=== PATIENT | male | born 1965 | race Caucasian/White ===

== ENCOUNTER 2017-11-01 10:43 | Observation (INO) | payer OTHER ==
[~2017-11-01] VITALS: Ht 172.7 cm; Wt 63.5 kg
[2017-11-01 10:47] VITALS: BP 105/75
[2017-11-01] MEDS ORDERED: NACL 0.9% 3,000 ML IV ONE (12:15)
[2017-11-01 12:48] LABS: BASOPHILS % (AUTO) 0.2 % (0.0-2.0); EOSINOPHILS % (AUTO) 0.4 % (0.0-4.0); HEMATOCRIT 41.6 % (36-52); HEMOGLOBIN 13.7 g/dL (12.0-18.0); LYMPHOCYTES # (AUTO) 1.5 K/uL (2.0-11.5); LYMPHOCYTES % (AUTO) 16.8 % (20.5-51.1); MEAN CORPUSCULAR HEMOGLOBIN 31 pg (27-31); MEAN CORPUSCULAR HGB CONC 33 g/dL (33-37); MEAN CORPUSCULAR VOLUME 94.2 fL (80-94); MONOCYTES # (AUTO) 0.6 K/uL (0.8-1.0); MONOCYTES % (AUTO) 6.3 % (1.7-9.3); NEUTROPHILS # (AUTO) 6.9 K/uL (1.8-7.7); NEUTROPHILS % (AUTO) 76.3 % (42.2-75.2); PLATELET COUNT (AUTO) 289 K/uL (140-450); RED BLOOD CELL COUNT(AUTO) 4.42 MIL/uL (4.20-6.10); RED CELL DISTRIBUTION WIDTH 14.3 % (11.6-13.7)
[2017-11-01 13:12] LABS: ANION GAP 13.6 (8-16); CARBON DIOXIDE 26.9 mmol/L (21-32); CREATININE 2.7 mg/dL (0.7-1.3); POTASSIUM 3.5 mmol/L (3.5-5.1)
[2017-11-01 13:13] LABS: PROTHROMBIN TIME 10.2 secs (10.8-13.4)
[2017-11-01 13:20] LABS: TOTAL BILIRUBIN 0.4 mg/dL (0.0-1.0)
[2017-11-01] MEDS ORDERED: NACL 0.9% 1,000 ML IV ONE (13:50)
[2017-11-01] MEDS ORDERED: ONDANSETRON 4 MG/2 ML VIAL IVP PRN (18:40)
[2017-11-01] MEDS ORDERED: DEXT 5% / NACL 0.9% 1,000 ML IV ONE (18:40)
[2017-11-01] MEDS ORDERED: ACETAMINOPHEN 325 MG TAB PO PRN (18:40)
[2017-11-01 19:08] LABS: ANION GAP 12.9 (8-16); CARBON DIOXIDE 25.3 mmol/L (21-32); POTASSIUM 4.2 mmol/L (3.5-5.1)
[2017-11-01 19:09] LABS: CREATININE 1.5 mg/dL (0.7-1.3)
[2017-11-01 20:02] LABS: BARBITURATE, URINE NEG. ng/ml (NEG <=200); BENZODIAZEPINE, URINE NEG. ng/mL (NEG <=200); CANNABINOID, URINE POS. ng/mL (NEG <=50); COCAINE, URINE NEG. ng/mL (NEG <=300); OPIATE, URINE NEG. ng/mL (NEG <=2000); PHENCYCLIDINE SCREEN,URINE NEG. ng/mL (NEG <=25)
[2017-11-01 20:10] VITALS: BP 93/65
[2017-11-01] MEDS ORDERED: HYDROcodone/APAP 5/325 MG 1 TAB TAB PO PRN (21:55)
[2017-11-02] MEDS: NACL 0.9% 1,000 ML IV SCH ×2 (04:30→08:10)
[2017-11-02 07:14] LABS: ANION GAP 8.4 (8-16); CARBON DIOXIDE 27.8 mmol/L (21-32); CREATININE 0.9 mg/dL (0.7-1.3); POTASSIUM 4.2 mmol/L (3.5-5.1)
[2017-11-02 08:00] VITALS: BP 110/73
[2017-11-02] MEDS: AMITRIPTYLINE 50 MG TAB PO SCH ×2 (09:16→14:14)
[2017-11-02] MEDS ORDERED: TEMAZEPAM 15 MG CAP PO SCH (21:00)
== END 2017-11-02 15:05 | disposition home or self-care (01) ==
LOC: MED 10:43 → MTU 18:52
PROVIDERS: ADMIT Internal Medicine; ATTEND Internal Medicine
DX: N17.9 Acute kidney failure, unspecified (principal); E86.0 Dehydration; I25.2 Old myocardial infarction; F41.8 Other specified anxiety disorders; F11.90 Opioid use, unspecified, uncomplicated; F17.210 Nicotine dependence, cigarettes, uncomplicated
CPT/HCPCS: 36415; 71045; 76770; 80048; 80053; 80305; 82550; 84484; 85025; 85610; 85730; 87081; 93005; 96360; 96361; 99285; G0378; J7030; J7042; Q0092

== ENCOUNTER 2018-05-07 18:20 | Emergency (ER) | payer OTHER ==
[~2018-05-07] VITALS: Ht 170.2 cm; Wt 65.8 kg
[2018-05-07 18:40] VITALS: BP 116/77
--- NOTE | 2018-05-07 19:10 | NUR ---
PT PRESENTS TO ED WITH ULCERATION TO LEFT SIDE BOTTOM LIP X3 DAYS. PT STATES YELLOW DRAINAGE ON THIS DAY. 8/10 PAIN WITH MOVEMENT. VSS. A&OX4. AFEBRILE. PT IN BED POSITIONED FOR COMFORT. ER MD AWARE. CONTINUE TO MONITOR.
--- NOTE | 2018-05-07 19:10 | NUR ---
PT AMBULATED TO BED 2 WITH VSS.
[2018-05-07] MEDS ORDERED: CEPHALEXIN 500 MG CAP PO ONE (19:45)
[2018-05-07 20:09] VITALS: BP 122/86
== END 2018-05-07 20:09 | disposition home or self-care (01) ==
LOC: MED 18:20
DX: S01.501A Unspecified open wound of lip, initial encounter (principal); L08.9 Local infection of the skin and subcutaneous tissue, unspecified; F17.200 Nicotine dependence, unspecified, uncomplicated; W22.8XXA Striking against or struck by other objects, initial encounter; Y93.89 Activity, other specified; Y92.89 Other specified places as the place of occurrence of the external cause; Y99.8 Other external cause status
CPT/HCPCS: 99283

== ENCOUNTER 2018-06-15 15:42 | Emergency (ER) | payer OTHER ==
[~2018-06-15] VITALS: Ht 170.2 cm; Wt 63.5 kg
[2018-06-15 16:15] VITALS: BP 131/74
--- NOTE | 2018-06-15 18:14 | NUR ---
PATIENT PRESENTS TO ED WITH BROUGHT IN BY EMS PT C/O RIGHT HAND PAIN S/P MECHANINCAL FALL LACERATION TO PALM +2 RADIAL PULSE <3 SEC CAP REFILL DENIES N/V/D; SKIN IS PINK/WARM/DRY; AAOX4 WITH EVEN AND STEADY GAIT; LUNGS CLEAR BL; HR EVEN AND REGULAR; PT DENIES ANY FEVER, CP, SOB, OR COUGH AT THIS TIME; PATIENT STATES PAIN OF 8/10 AT THIS TIME; VSS; PATIENT POSITIONED FOR COMFORT; HOB ELEVATED; BEDRAILS UP X2; BED DOWN. ER MD MADE AWARE OF PT STATUS.
[2018-06-15] MEDS ORDERED: KETOROLAC 30 MG/ML VIAL IM ONE (18:15)
[2018-06-15] MEDS ORDERED: CEPHALEXIN 500 MG CAP PO ONE (18:15)
[2018-06-15] MEDS ORDERED: LIDOCAINE 1% 500 MG/50 ML VIAL INJ SCH (18:30)
[2018-06-15] MEDS ORDERED: LIDOCAINE MPF 1% 5mL VIAL ONE (18:55)
--- NOTE | 2018-06-15 18:59 | NUR ---
NATHAN SPRAGUE PROVIDING SUTURES.
--- NOTE | 2018-06-15 19:15 | NUR ---
PROVIDED WOUND CARE FOR PT'S RIGHT HAND. COVERED LACERATION WITH A NON ADHERANT DRESSING WELL A ROLL OF GAUZE.
[2018-06-15 19:23] VITALS: BP 135/81
== END 2018-06-15 19:23 | disposition home or self-care (01) ==
LOC: MED 15:42
DX: S61.411A Laceration without foreign body of right hand, initial encounter (principal); W45.8XXA Other foreign body or object entering through skin, initial encounter; Y93.89 Activity, other specified; Y92.89 Other specified places as the place of occurrence of the external cause; Y99.8 Other external cause status
CPT/HCPCS: 12004; 73130; 90471; 90715; 96372; 99283; J1885; J2001

== ENCOUNTER 2018-06-22 16:31 | Emergency (ER) | payer OTHER ==
[~2018-06-22] VITALS: Ht 170.2 cm; Wt 66.7 kg
[2018-06-22 17:01] VITALS: BP 107/75
--- NOTE | 2018-06-22 19:32 | NUR ---
PT TO ED FOR SUTURE RECHECK TO RT HAND. NO S/S OF INFECTION NOTED. PT PLACED INTO BED, MURRAY MELENDEZ.
[2018-06-22 19:35] VITALS: BP 107/75
--- NOTE | 2018-06-22 19:35 | NUR ---
Patient discharged with v/s stable. Written and verbal after care instructions given and explained. Patient verbalized understanding. Ambulatory with steady gait. All questions addressed prior to discharge. Advised to follow up with PMD.
== END 2018-06-22 19:35 | disposition home or self-care (01) ==
LOC: MED 16:31
DX: S61.411D Laceration without foreign body of right hand, subsequent encounter (principal); X58.XXXD Exposure to other specified factors, subsequent encounter
CPT/HCPCS: 99281

== ENCOUNTER 2018-09-29 20:22 | Emergency (ER) | payer OTHER ==
[~2018-09-29] VITALS: Ht 175.3 cm; Wt 64.9 kg
[2018-09-29 20:29] VITALS: BP 116/83
[2018-09-29 20:30] VITALS: BP 116/83
--- NOTE | 2018-09-29 20:30 | NUR ---
BIB SELF. AAO X4 C/O RIGHT EYE PAIN 7/10 AFTER BEING POKED IN THE EYE WITH A LEAF WHILE PULLING OUT WEEDS LAST NIGHT;PT STATES HEADACHE OF 5/10. PT C/O BLURRY VISION TO RIGHT EYE. REDNESS TO R EYE, NO DISCHARGE NOTED. PT DENIES DIZZINESS.PERRLA BRISK 3MM. FULL CLEAR SPEECH. STEADY GAIT. ER TO EVALUATE PT.
--- NOTE | 2018-09-29 20:40 | NUR ---
NATHAN ARRIAGA AT BEDSIDE FOR PT EVALUATION
[2018-09-29] MEDS ORDERED: TETRACAINE HCL/PF 0.5% OPTH 4 ML BTL OP ONE (20:50)
[2018-09-29] MEDS ORDERED: FLUORESCEIN OPTH STRIP 0.6 MG OP ONE (20:50)
[2018-09-29] MEDS ORDERED: TETRACAINE HCL/PF 0.5% OPTH 4 ML BTL ONE (20:56)
[2018-09-29] MEDS ORDERED: FLUORESCEIN OPTH STRIP 0.6 MG ONE (20:56)
--- NOTE | 2018-09-29 20:58 | NUR ---
Pt report given to FARHEEN Luong. Transfer of care at this time.
--- NOTE | 2018-09-29 20:58 | NUR ---
REPORT RECIEVED FROM FARHEEN ADAN. ASSUMED CARE AT THIS TIME.
== END 2018-09-29 21:35 | disposition home or self-care (01) ==
LOC: MED 20:22
DX: H11.31 Conjunctival hemorrhage, right eye (principal); W22.8XXA Striking against or struck by other objects, initial encounter; Y93.01 Activity, walking, marching and hiking; Y92.89 Other specified places as the place of occurrence of the external cause; Y99.8 Other external cause status
CPT/HCPCS: 99283

== ENCOUNTER 2018-10-01 14:11 | Observation (INO) | payer OTHER ==
[~2018-10-01] VITALS: Ht 172.7 cm; Wt 63.5 kg
[2018-10-01 14:11] VITALS: BP 94/55
--- NOTE | 2018-10-01 14:11 | NUR ---
PATIENT BIB ALS TO ER BED 8.
--- NOTE | 2018-10-01 14:24 | NUR ---
PT BIB EMS FROM WORK C/O DULL 6/10 CHEST PAIN. PT WAS GIVEN 324MG ASPIRIN ,0.4 MG NITRO AND 4MG ZOFRAN PMH---ANXIETY, HERNIA SURGERY NKA . DENIES V/D; SKIN IS PINK/WARM/DRY; AWAKE, ALERT. LUNGS CLEAR BL; HR EVEN AND REGULAR; PT DENIES ANY FEVER, SOB, OR COUGH AT THIS TIME; PATIENT STATES PAIN OF 5/10 AT THIS TIME; BEDSIDE MONITOR SHOWS SB. PATIENT POSITIONED FOR COMFORT; HOB ELEVATED; BEDRAILS UP X2; BED DOWN. ER MD MADE AWARE OF PT STATUS.
[2018-10-01] MEDS ORDERED: NACL 0.9% 1,000 ML IV ONE (14:33)
[2018-10-01] MEDS ORDERED: fentaNYL 0.05 MG/ML VIAL IVP ONE (14:35)
[2018-10-01] MEDS ORDERED: ONDANSETRON 4 MG/2 ML VIAL IVP ONE (14:35)
[2018-10-01 14:50] LABS: BASOPHILS % (AUTO) 0.2 % (0.0-2.0); EOSINOPHILS % (AUTO) 0.4 % (0.0-4.0); HEMATOCRIT 44.7 % (36-52); HEMOGLOBIN 15.1 g/dL (12.0-18.0); LYMPHOCYTES % (AUTO) 10.2 % (20.5-51.1); MEAN CORPUSCULAR HEMOGLOBIN 33 pg (27-31); MEAN CORPUSCULAR HGB CONC 34 g/dL (33-37); MEAN CORPUSCULAR VOLUME 96.8 fL (80-94); MONOCYTES # (AUTO) 0.6 K/uL (0.8-1.0); MONOCYTES % (AUTO) 6.3 % (1.7-9.3); NEUTROPHILS # (AUTO) 7.9 K/uL (1.8-7.7); NEUTROPHILS % (AUTO) 82.9 % (42.2-75.2); PLATELET COUNT (AUTO) 316 K/uL (140-450); RED BLOOD CELL COUNT(AUTO) 4.62 MIL/uL (4.20-6.10); RED CELL DISTRIBUTION WIDTH 14.5 % (11.6-13.7); WHITE BLOOD COUNT (AUTO) 9.5 K/uL (4.8-10.8)
[2018-10-01 15:00] LABS: CARBON DIOXIDE 27.4 mmol/L (21-32); CREATININE 0.9 mg/dL (0.7-1.3); POTASSIUM 3.4 mmol/L (3.5-5.1)
[2018-10-01 15:05] LABS: ALBUMIN 3.7 g/dL (3.4-5.0); TOTAL BILIRUBIN 1.7 mg/dL (0.0-1.0)
--- NOTE | 2018-10-01 15:25 | NUR ---
PT STATED PAIN RELIEVED. BEDSIDE MONITOR SHOWS SR 88S.
[2018-10-01 16:04] LABS: APPEARANCE,URINE CLEAR (CLEAR); BILIRUBIN,URINE 2+ (NEGATIVE); BLOOD, URINE TRACE-I (NEGATIVE); COLOR,URINE YELLOW (YELLOW); LEUKOCYTE ESTERASE ,URINE NEGATIVE (NEGATIVE); NITRITE, URINE NEGATIVE (NEGATIVE); UGLUCOSE TRACE (NEGATIVE)
[2018-10-01 16:15] LABS: BARBITURATE, URINE NEG. ng/ml (NEG <=200); BENZODIAZEPINE, URINE NEG. ng/mL (NEG <=200); CANNABINOID, URINE POS. ng/mL (NEG <=50); COCAINE, URINE NEG. ng/mL (NEG <=300); OPIATE, URINE NEG. ng/mL (NEG <=2000); PHENCYCLIDINE SCREEN,URINE NEG. ng/mL (NEG <=25)
[2018-10-01 16:38] LABS: WBC,URINE 0-5 /HPF (0-5)
[2018-10-01 16:39] LABS: CALCIUM OXALATE CRYSTALS,UR 30-50 /HPF (None Seen); URINE AMORPHOUS URATE 1+ /HPF (None Seen)
[2018-10-01] MEDS ORDERED: MORPHINE SULFATE 4 MG/ML SYR IVP PRN (17:25)
[2018-10-01] MEDS ORDERED: HYDROcodone/APAP 5/325 MG 1 TAB TAB PO PRN (17:25)
[2018-10-01] MEDS ORDERED: ALBUTEROL 0.083% 2.5 MG/3 ML NEBU IH PRN (17:25)
[2018-10-01] MEDS ORDERED: ONDANSETRON 4 MG/2 ML VIAL IVP PRN (17:25)
[2018-10-01] MEDS ORDERED: ACETAMINOPHEN 325 MG TAB PO PRN (17:25)
--- NOTE | 2018-10-01 17:50 | NUR ---
TRANSFERRED PT TO TELE 125B, REPORT GIVEN TO AIME ZHONG. ALL PERSONAL BELONGINGS WITH PT.
--- NOTE | 2018-10-01 17:50 | NUR ---
PT ARRIVED FROM ER. ABLE TO AMBULATE TO [facility] BED. AAOX4, CALM, COOPERATIVE. SKIN INTACT. CHEST PAIN IS TOLERABLE AT THIS TIME. IV SITE INTACT, PATENT, ON SALINE LOCK. RESPIRATIONS EVEN AND UNLABORED ON RA. ABDOMEN SOFT AND FLAT. REVIEWED POC WITH PATIENT. SAFETY MEASURES IN PLACE, CALL LIGHT WITHIN REACH. WILL CONTINUE TO MONITOR.
--- NOTE | 2018-10-01 19:30 | NUR ---
GAVE REPORT TO SENIOR MARKETING DATA ANALYST NURSE FOR CONTINUITY OF CARE. PATIENT IN STABLE CONDITION.
--- NOTE | 2018-10-01 19:31 | NUR ---
RECEIVED PT FROM AIME ZHONG PT AAOX4 AMBULATORY ON TELEMETRY ST, IV ON LEFT AC GAUGE # 18 PATENT, , SCABS ON PT BOLD HEAD, , DENIES ANY CHEST PAIN ON ADMISSION PT IS ORIENTED TO THE FLOOR CALL LIGHT WITHIN REACH
[2018-10-01 20:00] VITALS: BP 107/78
--- NOTE | 2018-10-01 20:12 | NUR ---
PAIN MEDIC GIVEN ORDER FOR MODERATED PAIN, Addendum: 10/02/18 at 0059 by Isabel Thompson RN AT 2123 ON 10/01/18 ASYA GIVEN FOR MODERATED PAIN AND WILL BE MONITORING
--- NOTE | 2018-10-01 22:30 | NUR ---
AT 2230 AFTER PAIN MEDIC GIVEN PT IS SLEEPING QUIET NOT DISTRESS NOTED
[2018-10-02] VITALS: BP 98/53
--- NOTE | 2018-10-02 01:00 | NUR ---
PT VOIDING WELL AMBULATORY DENIES ANY CHEST PAIN AND CAME BACK TO SLEEP, ON TELMETRY SR
[2018-10-02 04:00] VITALS: BP 106/70
--- NOTE | 2018-10-02 04:00 | NUR ---
SPONGE BATH GIVEN LINEN CHANGED, DENIES ANY DISTRESS OR DISCOMFORT, ON TELEMETRY SR
--- NOTE | 2018-10-02 05:34 | NUR ---
PT RESTING O;;N BED SLEEPING WELL NOT SIGNS OF PAIN NOTED, ; ON TELEMETRY SR
--- NOTE | 2018-10-02 06:32 | NUR ---
PT RESTING O;N BED DENIES ANYCHEST PAIN AT THIS TIME, PT WILL BE ENDORSED TO DAY SHIFT NURSE FOR CONTINUITY OF CARE
--- NOTE | 2018-10-02 07:20 | NUR ---
RECEIVED REPORT FROM BRASS CUTTER NURSE. PT AAOX4 AND COOPERATIVE. SITTING UP IN BED. RESPIRATIONS EVEN AND UNLABORED ON RA. ABDOMEN SOFT AND FLAT. IV SITE ON LT AC 18GA, I/C/D. NO C/O PAIN AT THIS TIME. PT SKIN COLOR IS APPRIORIATE TO ETHNICITY, SKIN IS INTACT. SAFETY MEASURES IN PLACE, BED IN LOW POSITION, CALL LIGHT WITHIN REACH. WILL CONTINUE TO MONITOR.
--- NOTE | 2018-10-02 07:49 | NUR ---
PATIENT HAS BEEN SCREENED AND CATEGORIZED MODERATE NUTRITION RISK. PATIENT WILL BE SEEN WITHIN 3-5 DAYS OF ADMISSION. 10/04/18-10/06/[address]
[2018-10-02 07:50] LABS: BASOPHILS % (AUTO) 0.3 % (0.0-2.0); EOSINOPHILS # (AUTO) 0.1 K/uL (0-0.4); EOSINOPHILS % (AUTO) 1.7 % (0.0-4.0); HEMATOCRIT 44.2 % (36-52); HEMOGLOBIN 14.9 g/dL (12.0-18.0); LYMPHOCYTES # (AUTO) 0.9 K/uL (2.0-11.5); LYMPHOCYTES % (AUTO) 17.8 % (20.5-51.1); MEAN CORPUSCULAR HEMOGLOBIN 33 pg (27-31); MEAN CORPUSCULAR HGB CONC 34 g/dL (33-37); MEAN CORPUSCULAR VOLUME 98.6 fL (80-94); MONOCYTES # (AUTO) 0.5 K/uL (0.8-1.0); MONOCYTES % (AUTO) 9.9 % (1.7-9.3); NEUTROPHILS # (AUTO) 3.4 K/uL (1.8-7.7); NEUTROPHILS % (AUTO) 70.3 % (42.2-75.2); PLATELET COUNT (AUTO) 250 K/uL (140-450); RED BLOOD CELL COUNT(AUTO) 4.49 MIL/uL (4.20-6.10); RED CELL DISTRIBUTION WIDTH 15.1 % (11.6-13.7); WHITE BLOOD COUNT (AUTO) 4.8 K/uL (4.8-10.8)
[2018-10-02 08:00] VITALS: BP 95/61
--- NOTE | 2018-10-02 08:03 | NUR ---
IV PULLED OUT BY RN PER PT REQUEST. CATHETER INTACT. PRESSURE APPLIED TO AREA. PT TOLERATED WELL. Addendum: 10/02/18 at 1027 by Isabelle Sanford RN ADDITIONAL: PT REFUSED IV. EXPLAIN NEED AND RISKS OF NOT HAVING AN IV IN PLACE. PT VERBALIZED UNDERSTANDING BUT STILL REFUSES. NO BLEEDING NOTED.
[2018-10-02 08:28] LABS: ANION GAP 12.1 (8-16); CARBON DIOXIDE 26.9 mmol/L (21-32)
[2018-10-02 08:48] LABS: MAGNESIUM 2.2 mg/dL (1.8-2.4); PHOSPHORUS 3.6 mg/dL (2.5-4.9)
[2018-10-02] MEDS ORDERED: ASPIRIN 81 MG TAB.CHEW PO SCH (09:00)
--- NOTE | 2018-10-02 10:00 | NUR ---
PT LYING IN BED. RESPIRATIONS EVEN AND UNLABORED. NO C/O PAIN AND NO DISTRESS NOTED AT THIS TIME. CALL LIGHT WITHIN REACH.
[2018-10-02 12:00] VITALS: BP 109/73
--- NOTE | 2018-10-02 12:25 | NUR ---
PT AAOX4, CALM AND COOPERATIVE. NO C/O PAIN AT THIS TIME. RESPIRATIONS EVEN AND UNLABORED IN RA. WILL CONTINUE TO MONITOR.
--- NOTE | 2018-10-02 13:36 | NUR ---
PT SITTING UP IN BED. UNDERGOING ECHOCARDIOGRAM PROCEDURE. NO C/O OF PAIN AND S/S OF DISTRESS AT THIS TIME. WILL CONTINUE TO MONITOR.
--- NOTE | 2018-10-02 15:11 | NUR ---
PT AWAKE, ALERT IN BED. DR. CASTREJON AT BEDSIDE. RESPIRATIONS EVEN AND UNLABORED. NO DISTRESS AT THIS TIME.
[2018-10-02 16:00] VITALS: BP 109/73
--- NOTE | 2018-10-02 17:00 | NUR ---
PT WAS GIVEN AND EXPLAINED DISCHARGE INSTRUCTIONS. PT VERBALIZED UNDERSTANDING. POLYSOMNOGRAPH TECH AND ID BAND WAS REMOVED. PT WAS ESCORED OUT BY STAFF. AMBULATORY WITH STEADY GAIT. ALL BELONGINGS WERE TAKEN BY THE PT. PT IS STABLE AT THIS TIME.
== END 2018-10-02 17:10 | disposition home or self-care (01) ==
LOC: MED 14:11 → INTOOBSV 17:27 → MMU 17:27
PROVIDERS: ADMIT Internal Medicine Pulmonary Disease; ATTEND Internal Medicine Pulmonary Disease
DX: R07.2 Precordial pain (principal); E87.6 Hypokalemia; F15.10 Other stimulant abuse, uncomplicated; F17.200 Nicotine dependence, unspecified, uncomplicated; F12.10 Cannabis abuse, uncomplicated; F10.10 Alcohol abuse, uncomplicated
CPT/HCPCS: 36415; 71045; 80048; 80053; 80305; 81001; 83690; 83735; 84100; 84484; 85025; 87081; 93307; 94760; 96374; 96375; 99285; G0378; J2405; J3010; Q0092; 93005

== ENCOUNTER 2018-10-30 11:52 | Emergency (ER) | payer OTHER ==
[~2018-10-30] VITALS: Ht 172.7 cm; Wt 59.0 kg
--- NOTE | 2018-10-30 11:52 | NUR ---
Patient BIBA BLS, transferred to bed 2. RN evaluating patient at bedside.
[2018-10-30 11:59] VITALS: BP 121/81
--- NOTE | 2018-10-30 12:00 | NUR ---
BIBA FOR DIZZINESS STARTING TODAY WHILE HE WAS WORKING OUTSIDE. PT STATES HE FLIPS SIGNS OUTSIDE AND SUDDENLY STARTED FEELING FAINT/WEAK. DENIES CP, SOB, N/V, OR BLURRY VISION. PT ALERT AND ANSWERING QUESTIONS APPROPRIATELY, SPEAKING IN CLEAR, COMPLETE SENTENCES. FSBS 131. BLE/BUE STRENGTH EQUAL. PERRL. PT DENIES DRUG/ALCOHOL USE TODAY. BED IN LOW POSITION, SIDE RAIL UP X1. PT EDUCATED TO CALL FOR HELP IF HE NEEDS TO STAND UP.
[2018-10-30] MEDS ORDERED: NACL 0.9% 1,000 ML IV ONE (12:10)
--- NOTE | 2018-10-30 12:15 | NUR ---
EKG completed at bedside by EMT.
--- NOTE | 2018-10-30 12:37 | NUR ---
Dr. Cornejo evaluating patient at bedside.
--- NOTE | 2018-10-30 12:56 | NUR ---
PT CAN'T URINATE AT THIS TIME.
--- NOTE | 2018-10-30 12:57 | NUR ---
PT TO CT VIA [facility]
[2018-10-30 12:59] LABS: BASOPHILS % (AUTO) 0.2 % (0.0-2.0); EOSINOPHILS % (AUTO) 0.5 % (0.0-4.0); HEMATOCRIT 44.7 % (36-52); HEMOGLOBIN 15.2 g/dL (12.0-18.0); LYMPHOCYTES # (AUTO) 0.9 K/uL (2.0-11.5); LYMPHOCYTES % (AUTO) 12.4 % (20.5-51.1); MEAN CORPUSCULAR HEMOGLOBIN 33 pg (27-31); MEAN CORPUSCULAR HGB CONC 34 g/dL (33-37); MEAN CORPUSCULAR VOLUME 97.7 fL (80-94); MONOCYTES # (AUTO) 0.4 K/uL (0.8-1.0); MONOCYTES % (AUTO) 5.2 % (1.7-9.3); NEUTROPHILS # (AUTO) 5.9 K/uL (1.8-7.7); NEUTROPHILS % (AUTO) 81.7 % (42.2-75.2); PLATELET COUNT (AUTO) 276 K/uL (140-450); RED BLOOD CELL COUNT(AUTO) 4.58 MIL/uL (4.20-6.10); RED CELL DISTRIBUTION WIDTH 14.5 % (11.6-13.7); WHITE BLOOD COUNT (AUTO) 7.2 K/uL (4.8-10.8)
[2018-10-30 13:06] LABS: ANION GAP 10.6 (8-16); CARBON DIOXIDE 30.1 mmol/L (21-32); CREATININE 0.8 mg/dL (0.7-1.3); POTASSIUM 3.7 mmol/L (3.5-5.1)
[2018-10-30 13:11] LABS: ALBUMIN 3.6 g/dL (3.4-5.0); TOTAL BILIRUBIN 0.3 mg/dL (0.0-1.0)
[2018-10-30 13:24] LABS: THYROID STIMULATING HORMONE 1.16 uIU/mL (0.34-3.74)
--- NOTE | 2018-10-30 14:25 | NUR ---
PATIENT STATES THAT HE WILL WALK HOME, VSS AT THIS TIME. PASSED ROAD TEST SUCCESSFULLY.
[2018-10-30 14:28] VITALS: BP 128/88
== END 2018-10-30 14:28 | disposition home or self-care (01) ==
LOC: MED 11:52
DX: R42 Dizziness and giddiness (principal); R51 Headache; F17.210 Nicotine dependence, cigarettes, uncomplicated
CPT/HCPCS: 36415; 70450; 71046; 80053; 83735; 83880; 84443; 84484; 85025; 93005; 96360; 99284; G0482; J7030; Q0092; 81025

== ENCOUNTER 2018-11-21 18:01 | Emergency (ER) | payer OTHER ==
[~2018-11-21] VITALS: Ht 182.9 cm; Wt 66.9 kg
[2018-11-21 18:15] VITALS: BP 93/66
--- NOTE | 2018-11-21 18:42 | NUR ---
PT BIBA WITH C/O GENERALIZED WEAKNESS, SOB AND ALCOHOL INTOXICATION. STRONG ETOH ODOR. PT ALERT AND ORIENTED TO PERSON, PLACE, TIME AND EVENT. CLEAR SPEECH. EQUAL BILATERAL HAND COTTONSEED MEAT PRESSER; EQUAL BILATERAL FOOT PUSH. DENIES ANY PAIN AT THIS TIME.
--- NOTE | 2018-11-21 19:20 | NUR ---
RECEIVED REPORT FROM FRAHEEN BLANCHARD. TRANSFER OF CARE AT THIS TIME.
--- NOTE | 2018-11-21 19:30 | NUR ---
XRAY AT BEDSIDE.
[2018-11-21] MEDS ORDERED: NACL 0.9% 1,000 ML IV ONE (19:35)
--- NOTE | 2018-11-21 19:45 | NUR ---
LAB AT BEDSIDE.
[2018-11-21 19:53] LABS: BASOPHILS % (AUTO) 0.4 % (0.0-2.0); EOSINOPHILS # (AUTO) 0.1 K/uL (0-0.4); EOSINOPHILS % (AUTO) 1.7 % (0.0-4.0); HEMATOCRIT 42.3 % (36-52); HEMOGLOBIN 14.2 g/dL (12.0-18.0); LYMPHOCYTES # (AUTO) 1.1 K/uL (2.0-11.5); LYMPHOCYTES % (AUTO) 16.9 % (20.5-51.1); MEAN CORPUSCULAR HEMOGLOBIN 33 pg (27-31); MEAN CORPUSCULAR HGB CONC 34 g/dL (33-37); MEAN CORPUSCULAR VOLUME 97.9 fL (80-94); MONOCYTES # (AUTO) 0.3 K/uL (0.8-1.0); MONOCYTES % (AUTO) 5.6 % (1.7-9.3); NEUTROPHILS # (AUTO) 4.7 K/uL (1.8-7.7); NEUTROPHILS % (AUTO) 75.4 % (42.2-75.2); PLATELET COUNT (AUTO) 272 K/uL (140-450); RED BLOOD CELL COUNT(AUTO) 4.32 MIL/uL (4.20-6.10); RED CELL DISTRIBUTION WIDTH 14.5 % (11.6-13.7); WHITE BLOOD COUNT (AUTO) 6.2 K/uL (4.8-10.8)
--- NOTE | 2018-11-21 20:30 | NUR ---
Patient appears to be resting comfortably in bed. Vital Signs within normal limits. Respirations even and unlabored.
[2018-11-21 20:37] LABS: ANION GAP 11.3 (8-16); CARBON DIOXIDE 30.8 mmol/L (21-32); POTASSIUM 4.1 mmol/L (3.5-5.1)
[2018-11-21 20:42] LABS: ALBUMIN 3.3 g/dL (3.4-5.0); TOTAL BILIRUBIN 0.2 mg/dL (0.0-1.0)
[2018-11-21 21:41] VITALS: BP 98/58
== END 2018-11-21 21:41 | disposition home or self-care (01) ==
LOC: MED 18:01
DX: R53.1 Weakness (principal); R06.02 Shortness of breath; R07.9 Chest pain, unspecified
CPT/HCPCS: 36415; 71045; 80053; 84484; 85025; 93005; 96360; 99284; G0482; J7030; Q0092

== ENCOUNTER 2018-12-08 12:37 | Inpatient (IN) | payer OTHER ==
[~2018-12-08] VITALS: Ht 167.6 cm; Wt 68.0 kg
--- NOTE | 2018-12-08 12:37 | NUR ---
Patient BIBA BLS on 5150 hold, transferred to bed 5. RN evaluating patient at bedside.
[2018-12-08 12:46] VITALS: BP 117/84
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
--- NOTE | 2018-12-08 12:50 | NUR ---
PT'S SAFETY ENSURED. PT BELONGINGS TAKEN OUT FROM THE ROOM AND GIVEN TO THE SECURITY. 1:1 SITTER AT BEDSIDE FOR MONITORING. WILL CONTINUE TO MONITOR.
--- NOTE | 2018-12-08 12:55 | NUR ---
PT IS AGGRESSIVE AND VERBALLY INAPPROPRIATE TO STAFF. ATTEMPTED PT DISTRACTION. PT ON RESTRAINTS TO BILATERAL WRISTS AND BILATERAL ANKLES. SAFETY ENSURED. 1:1 SITTER AT BEDSIDE.
--- NOTE | 2018-12-08 12:55 | NUR ---
Dr. Nelson evaluating patient at bedside.
[2018-12-08] MEDS ORDERED: LORazepam 2 MG/ML VIAL IM ONE (13:00)
--- NOTE | 2018-12-08 13:10 | NUR ---
PT WAS GIVEN URINAL AT THIS TIME. PT UNABLE TO GIVE URINE AT THIS TIME. PT WAS OFFERED FLUIDS. PT TOLERATED WELL.
--- NOTE | 2018-12-08 14:00 | NUR ---
PT IS COMBATIVE AND AGGRESSIVE AT THIS TIME AND VERBALLY INAPPROPRIATE TO STAFF. PT WAS ABLE TO BE DISTRACTED. SAFETY ENSURED. 1:1 SITTER AT BEDSIDE.
--- NOTE | 2018-12-08 14:15 | NUR ---
LABS DRAWN, PT CHOSE LEFT ARM TO BE DRAWN
[2018-12-08 14:20] LABS: BASOPHILS % (AUTO) 0.5 % (0.0-2.0); EOSINOPHILS # (AUTO) 0.1 K/uL (0-0.4); EOSINOPHILS % (AUTO) 1.8 % (0.0-4.0); HEMOGLOBIN 14.8 g/dL (12.0-18.0); LYMPHOCYTES # (AUTO) 1.5 K/uL (2.0-11.5); LYMPHOCYTES % (AUTO) 35.4 % (20.5-51.1); MEAN CORPUSCULAR HEMOGLOBIN 33 pg (27-31); MEAN CORPUSCULAR HGB CONC 34 g/dL (33-37); MEAN CORPUSCULAR VOLUME 96.8 fL (80-94); MONOCYTES # (AUTO) 0.3 K/uL (0.8-1.0); NEUTROPHILS # (AUTO) 2.3 K/uL (1.8-7.7); NEUTROPHILS % (AUTO) 54.3 % (42.2-75.2); PLATELET COUNT (AUTO) 300 K/uL (140-450); RED BLOOD CELL COUNT(AUTO) 4.45 MIL/uL (4.20-6.10); WHITE BLOOD COUNT (AUTO) 4.2 K/uL (4.8-10.8)
--- NOTE | 2018-12-08 14:20 | NUR ---
PT WAS OFFERED FLUIDS. TOLERATED WELL. PT OFFERED URINAL, BUT UNABLE TO GIVE URINE AT THIS TIME. DR MEADOWS MADE AWARE.
--- NOTE | 2018-12-08 15:30 | NUR ---
DISCONTINUED RESTRAINTS TO BILATERAL WRISTS AND BILATERAL ANKLES. PT IS CALM AND COOPERATIVE AT THIS TIME. SAFETY ENSURED. 1:1 SITTER AT BEDSIDE FOR PT MONITORING.
--- NOTE | 2018-12-08 15:45 | NUR ---
PT AMBULATED TO THE BATHROOM WITH STEADY GAIT ACCOMPANIED BY EMT.
--- NOTE | 2018-12-08 15:53 | NUR ---
PT AMBULATED BACK TO BED WITH STEADY GAIT ACCOMPANIED BY EMT
--- NOTE | 2018-12-08 16:30 | NUR ---
PT ASLEEP. EASILY AROUSABLE BY VOICE. PT CONVERSATING AND ACTING APPROPRIATELY. NO SIGNS AND SYMPTOMS OF DISTRESS NOTED. SAFETY ENSURED. 1:1 SITTER AT BEDSIDE.
[2018-12-08 16:33] LABS: APPEARANCE,URINE CLEAR (CLEAR); BILIRUBIN,URINE NEGATIVE (NEGATIVE); BLOOD, URINE TRACE-L (NEGATIVE); COLOR,URINE YELLOW (YELLOW); LEUKOCYTE ESTERASE ,URINE NEGATIVE (NEGATIVE); NITRITE, URINE NEGATIVE (NEGATIVE); UGLUCOSE NEGATIVE (NEGATIVE)
[2018-12-08 16:40] LABS: RBC,URINE 0-5 /HPF (0-5); WBC,URINE 0-5 /HPF (0-5)
[2018-12-08 16:45] LABS: BARBITURATE, URINE NEG. ng/ml (NEG <=200); BENZODIAZEPINE, URINE NEG. ng/mL (NEG <=200); CANNABINOID, URINE POS. ng/mL (NEG <=50); COCAINE, URINE NEG. ng/mL (NEG <=300); OPIATE, URINE NEG. ng/mL (NEG <=2000); PHENCYCLIDINE SCREEN,URINE NEG. ng/mL (NEG <=25)
[2018-12-08 17:21] LABS: ANION GAP 14.4 (8-16); CARBON DIOXIDE 27.2 mmol/L (21-32); CHLORIDE 106 mmol/L (98-107); CREATININE 0.9 mg/dL (0.7-1.3); GFR ARICAN-AMERICAN 113 mL/min (>90); GLUCOSE 100 mg/dL (74-106); POTASSIUM 3.6 mmol/L (3.5-5.1); SODIUM SERUM 144 mmol/L (136-145); UREA NITROGEN, BLOOD 10 mg/dL (7-18)
[2018-12-08 17:27] LABS: ALBUMIN 3.4 g/dL (3.4-5.0); ASPARTATE AMINOTRANSFERASE 19 U/L (15-37); SALICYLATE 6.2 mg/dL (2.8-20.0); TOTAL BILIRUBIN 0.3 mg/dL (0.0-1.0)
[2018-12-08 17:28] LABS: ACETAMINOPHEN < 0.5 ug/ml (10-30)
--- NOTE | 2018-12-08 17:30 | NUR ---
PT IS ASLEEP. EASILY AWAKEN BY VOICE. AAO X4, FULL CLEAR SPEECH. NO SIGNS AND SYMPTOMS OF DISTRESS NOTED. SAFETY ENSURED. 1:1 SITTER AT BEDSIDE.
--- NOTE | 2018-12-08 18:06 | NUR ---
Telepsychiatry consultation ordered as requested by Dr. Nelson.
--- NOTE | 2018-12-08 18:45 | NUR ---
PT ASLEEP. EASILY AWAKEN BY VOICE. PT IS CALM, ACTING AND CONVERSATING APPROPRIATELY. NO SIGNS AND SYMPTOMS OF DISTRESS NOTED. SAFETY ENSURED. 1:1 SITTER AT BEDSIDE.
--- NOTE | 2018-12-08 19:07 | NUR ---
Pt report given to FARHEEN CERVANTES. Transfer of care at this time.
--- NOTE | 2018-12-08 19:30 | NUR ---
RECEIVED REPORT FROM AM NURSE. PT LAYING IN BED, AROUSABLE TO NAME, RR EVEN AND UNLABORED. PT DENIES SI/HI. DENIES ANY PAIN OR SYMPTOMS. 1:1 SITTER AT BEDSIDE WITH CLOSE MONITORING, SAFETY MEASURES ENSURED. PT PROVIDED WITH SANDWICH AND SNACKS, ALL NEEDS MET.
--- NOTE | 2018-12-08 20:20 | NUR ---
RECEIVED CALL FROM TELEPSYCH DR AMAYA, GAVE REPORT.
--- NOTE | 2018-12-08 20:26 | NUR ---
DR AMAYA SPEAKING WITH PT [facility]
--- NOTE | 2018-12-08 21:00 | NUR ---
PT LAYING IN BED, AROUSABLE TO NAME, RR EVEN AND UNLABORED. DENIES ANY PAIN OR SYMPTOMS. 1:1 SITTER AT BEDSIDE WITH CLOSE MONITORING, SAFETY MEASURES ENSURED.
--- NOTE | 2018-12-08 21:02 | NUR ---
RECEIVED CALL FROM DR AMAYA. PER , RECOMMENDATION TO [facility] 5150 HOLD AND HAVE PT TRANSFERRED TO PSYCH FACILITY. DR ROBLES MADE AWARE.
--- NOTE | 2018-12-08 21:13 | NUR ---
Keith Verduzco s/w Jessica no beds but ask to fax packet for review in the am Yaz Ramirez s/w Juli no beds [facility] s/w Stefani no beds [facility] s[facility]w Vanessa [facility] beds [facility] Argenis [facility] but packet fax for wait list
--- NOTE | 2018-12-08 23:10 | NUR ---
PT SLEEPING IN BED, AROUSABLE TO NAME, RR EVEN AND UNLABORED. VSS. 1:1 SITTER AT BEDSIDE WITH CLOSE MONITORING, SAFETY MEASURES ENSURED.
[2018-12-09] MEDS ORDERED: guaiFENesin DM 200/20 MG-10 ML 10 ML UDC PO PRN (01:10)
[2018-12-09] MEDS ORDERED: HYDROcodone/APAP 5/325 MG 1 TAB TAB PO PRN ×2 (01:10)
[2018-12-09] MEDS ORDERED: BISACODYL 10 MG SUPP RC PRN (01:10)
[2018-12-09] MEDS ORDERED: MORPHINE SULFATE 2 MG/ML SYR IVP PRN (01:10)
[2018-12-09] MEDS ORDERED: ACETAMINOPHEN 650 MG SUPP RC PRN (01:10)
[2018-12-09] MEDS ORDERED: ALBUTEROL 0.083% 2.5 MG/3 ML NEBU INH PRN (01:10)
[2018-12-09] MEDS ORDERED: ACETAMINOPHEN 325 MG TAB PO PRN (01:10)
[2018-12-09] MEDS ORDERED: SODIUM PHOSPHATE 118 ML ENEM RC PRN (01:10)
[2018-12-09] MEDS ORDERED: ALUMINUM HYD/MAG/SIMETHICONE 30 ML UDC PO PRN (01:10)
[2018-12-09] MEDS ORDERED: ZOLPIDEM 5 MG TAB PO PRN (01:10)
[2018-12-09] MEDS ORDERED: DOCUSATE SODIUM 250 MG GELCAP PO PRN (01:10)
[2018-12-09] MEDS ORDERED: cloNIDine 0.1 MG TAB PO PRN (01:10)
[2018-12-09] MEDS ORDERED: POTASSIUM CHLORIDE 40 MEQ, LIDOCAINE 1% 25 MG in NACL 0.9% 250 ML IV PRN (01:10)
[2018-12-09] MEDS ORDERED: POTASSIUM CHLORIDE 10 MEQ TABER PO PRN (01:10)
[2018-12-09] MEDS ORDERED: MAG SULF 2000 MG/WATER PREMIX 50 ML IV PRN (01:10)
[2018-12-09] MEDS ORDERED: LORazepam 2 MG/ML VIAL IVP PRN (01:10)
[2018-12-09] MEDS ORDERED: MAGNESIUM OXIDE 400 MG TAB PO PRN (01:10)
[2018-12-09] MEDS ORDERED: diphenhydrAMINE 50 MG/ML VIAL IVP PRN (01:10)
[2018-12-09] MEDS ORDERED: IPRATROPIUM 0.02% 0.5 MG/2.5 ML NEBU INH PRN (01:10)
[2018-12-09] MEDS ORDERED: ONDANSETRON 4 MG/2 ML VIAL IVP PRN (01:10)
--- NOTE | 2018-12-09 01:30 | NUR ---
PT SLEEPING IN BED, AROUSABLE TO NAME, RR EVEN AND UNLABORED. VSS. 1:1 SITTER AT BEDSIDE WITH CLOSE MONITORING, SAFETY MEASURES ENSURED.
--- NOTE | 2018-12-09 01:35 | NUR ---
Patient will be admitted to care of DR CARPENTER. Admited to [facility]. Will go to room 122B. Belongings list completed. Report to JULY FARHEEN.
--- NOTE | 2018-12-09 01:35 | NUR ---
RECEIVED REPORT FROM ER NURSE. PT AWAKE, ALERT AND ORIENTED X4. ABLE TO ANSWER QUESTIONS AND FOLLOW COMMANDS. VISIBLE CHEST RISE AND FALL ON ROOM AIR, NO NOTED DISTRESS. PT BROUGHT VIA GURNEY, ABLE TO AMBULATE TO BED, STEADY GAIT. NO IV SITE. SMALL HEALING LACERATION NOTED AT TOP OF HEAD. NO C/O DISCOMFORT. PT DENYING S/I AND STATES "I WAS NEVER SUICIDAL". PT REFUSING VITALS AT THIS TIME BUT IS OTHERWISE COOPERATIVE WITH STAFF. SITTER AT BEDSIDE.
--- NOTE | 2018-12-09 04:00 | NUR ---
ROUNDED ON PT. PT SLEEPING IN BED. VISIBLE CHEST RISE AND FALL, EQUAL AND UNLABORED. NO VISIBLE SIGNS OF DISTRESS. SITTER AT BEDSIDE.
--- NOTE | 2018-12-09 05:30 | NUR ---
LAYOUT MECHANIC BROUGHT PT SANDWICH PER REQUEST.
--- NOTE | 2018-12-09 06:53 | NUR ---
ROUNDED ON PT. PT SLEEPING. BREATHING EQUAL AND UNLABORED. NO VISIBLE SIGNS OF DISTRESS. SAFETY MEASURES IN PLACE. SITTER AT BEDSIDE.
--- NOTE | 2018-12-09 07:15 | NUR ---
RECEIVED REPORT FROM HYDROELECTRIC OPERATOR NURSE JULY FOR CONTINUITY OF CARE. PT IN STABLE CONDITION. RESPIRATIONS EVEN AND UNLABORED. NO IV AT THIS TIME. SAFETY MEASURES IN PLACE. BED IN LOW POSITION. CALL LIGHT AT BEDSIDE. WILL CONTINUE TO MONITOR. Addendum: 12/09/18 at 0947 by Mary Barnett RN SITTER AT BEDSIDE.
[2018-12-09 08:00] VITALS: BP 114/82
--- NOTE | 2018-12-09 08:38 | NUR ---
PATIENT HAS BEEN SCREENED AND CATEGORIZED LOW NUTRITION RISK. PATIENT WILL BE SEEN WITHIN 7 DAYS OF ADMISSION. 12/15/[address]
--- NOTE | 2018-12-09 08:50 | NUR ---
SECURITY REQUESTED. PT WANTS TO CALL JOB TO INFORM THEM HE WILL NOT BE IN TODAY. SECURITY BRINGS BELONGING LIST AND INFORMS PT THERE IS NO CELL PHONE IN HIS POSSESSION AT ARRIVAL TO HOSPITAL. SECURITY BRINGS BELONGINGS TO PT TO INSPECT FOR HIMSELF. PT IN STABLE CONDITION AT THIS TIME.
--- NOTE | 2018-12-09 09:47 | NUR ---
PT LYING IN BED SLEEPING AT THIS TIME. RESPIRATIONS EVEN AND UNLABORED. BED IN LOW POSITION. SITTER AT BEDSIDE.
--- NOTE | 2018-12-09 10:47 | NUR ---
SW attempted to conduct assessment with patient. Patient was asleep and did not respond to verbal cues. SW will attempt to complete assessment at a later time.
--- NOTE | 2018-12-09 11:45 | NUR ---
PT NIECE (JOHNNIE) CALLED TO SPEAK WITH PT. JOHNNIE WAS ABLE TO CALL PT JOB TO INFORM THEM HE WOULD NOT BE IN TODAY. PT IN STABLE CONDITION. RESPIRATIONS EVEN AND UNLABORED. BED IN LOW POSITION. SITTER AT BEDSIDE. WILL CONTINUE TO MONITOR.
--- NOTE | 2018-12-09 14:39 | NUR ---
PT LYING IN BED SLEEPING AT THIS TIME. RESPIRATIONS EVEN AND UNLABORED. BED IN LOW POSITION. SITTER AT BEDSIDE. WILL CONTINUE TO MONITOR.
[2018-12-09 16:00] VITALS: BP 109/81
--- NOTE | 2018-12-09 16:10 | NUR ---
PICKED UP TUNA SANDWICH PER PT REQUEST FROM [facility]. PT IN STABLE CONDITION. RESPIRATIONS EVEN AND UNLABORED. BED IN LOW POSITION. SITTER AT BEDSIDE. WILL CONTINUE TO MONITOR.
--- NOTE | 2018-12-09 18:14 | NUR ---
PT LYING IN BED QUIETLY IN STABLE CONDITION. RESPIRATIONS EVEN AND UNLABORED. BED IN LOW POSITION. SITTER AT BEDSIDE. WILL CONTINUE TO MONITOR.
--- NOTE | 2018-12-09 19:14 | NUR ---
GAVE REPORT TO IT DISASTER RECOVERY MANAGER NURSE JOO FOR CONTINUITY OF CARE. PT IN STABLE CONDITION.
--- NOTE | 2018-12-09 19:15 | NUR ---
REPORT RECEIVED FROM AM NURSE AT BEDSIDE. PT IN STABLE CONDITION. AAOX4 INTRODUCED SELF TO PT. BOARD UPDATED. NO COMPLAINTS OF PAIN. NO SOB. AFEBRILE. PT IS AMBULATORY. PT HAS NO IV SITE. SKIN WARM, DRY, AND NON-INTACT DUE TO FOREHEAD LACERATION. BED LOCKED IN LOW POSITION. CALL FERRARI WITHIN REACH. SAFETY PRECAUTION IN PLACE. ALL NEEDS MET AT THIS TIME.
[2018-12-09 20:00] VITALS: BP 106/77
--- NOTE | 2018-12-09 20:00 | NUR ---
REPORT GIVEN TO MARIA EUGENIA AT BEDSIDE. PT IN STABLE CONDITION.
--- NOTE | 2018-12-09 20:00 | NUR ---
Patient's Plan of Care was discussed and reviewed with SOCCER REFEREE: Kev RUSSELL
--- NOTE | 2018-12-09 20:01 | NUR ---
RECD. RESTING IN BED, AWAKE, A/OX4. RESPIRATION EVEN AND UNLABORED. NO IV LINE, REFUSED NEW IV INSERTION. INTRODUCED SELF, INQUIRED IF HE HAS SUICIDAL THOUGHTS OR THOUGHTS TO HARM OTHERS, STATED "NONE". DOES NOT WANT TO BE BOTHERED DURING SLEEP, DOES NOT LIKE NURSE TO TAKE VITAL SIGNS.
--- NOTE | 2018-12-09 20:39 | NUR ---
WANTS TO BE ABLE TO SLEEP WELL, MEDICATED WITH AMBIEN ORDERED.
--- NOTE | 2018-12-09 20:50 | NUR ---
Follow up calls were made to contracted [facility] facilities for bed placement. Still no beds available for tonight. [facility], spoke with Argenis, packet is on file. [facility] A[facility] Raya, spoke with Tri, packet is on file. [facility], spoke with Kraig. Adolescent beds only. [facility], spoke with Hiral. Adolescent beds only. [facility], spoke with Corie. [facility], spoke with Julienne. [facility], spoke with Vanessa. [facility] will continue to find placement for patient and will continue to monitor RN/MD notes. Unit will be notified if a bed becomes available for patient.
--- NOTE | 2018-12-09 20:55 | NUR ---
INFORMED CHARGE NURSE HETAL CUEVAS DISCONTINUED 5150 HOLD ON PATIENT. NO NEED FOR SITTER. PATIENT STILL SLEEPING COMFORTABLY IN BED.
--- NOTE | 2018-12-09 21:10 | NUR ---
SLEEPING COMFORTABLY IN BED.
--- NOTE | 2018-12-09 23:05 | NUR ---
SOUNDLY ASLEEP, SNORING.
[2018-12-10] VITALS: BP 108/80
--- NOTE | 2018-12-10 00:31 | NUR ---
VS STABLE, NO COMPLAINT OF PAIN 0/10.
--- NOTE | 2018-12-10 02:00 | NUR ---
IN BED, SLEEPING COMFORTABLY.
--- NOTE | 2018-12-10 04:05 | NUR ---
NO RESPIRATORY DISTRESS NOTED. STILL SLEEPING IN BED.
--- NOTE | 2018-12-10 07:10 | NUR ---
ABLE TO SLEEP WELL. CONDITION REMAIN STABLE. ENDORSED TO FARHEEN GERONIMO FOR CONTINUITY OF CARE.
--- NOTE | 2018-12-10 07:11 | NUR ---
RECEIVED REPORT FROM CAMERA PERSON NURSE MARIA EUGENIA FOR CONTINUITY OF CARE. PT IN STABLE CONDITION. RESPIRATIONS EVEN AND UNLABORED, ROOM AIR. SAFETY PRECAUTIONS IN PLACE. BED IN LOW POSITION. CALL LIGHT AT BEDSIDE. WILL CONTINUE TO MONITOR.
[2018-12-10 08:00] VITALS: BP 115/84
--- NOTE | 2018-12-10 08:30 | NUR ---
RAJI CARPENTER [facility] DISCHARGE ORDER.
--- NOTE | 2018-12-10 09:15 | NUR ---
GAVE DISCHARGE INSTRUCTIONS., PT VERBALIZED UNDERSTANDING OF INSTRUCTIONS. ID BAND REMOVED. PT REFUSED WHEELCHAIR. PT ESCORTED TO [facility] WHERE HE'S GOING TO WALK HOME. PT STATED HE LIVES IN THE [place]. PT IN STABLE CONDITION.
== END 2018-12-10 09:19 | disposition home or self-care (01) | DRG 775 ==
LOC: MED 12:37 → MTU 12-09 00:01
PROVIDERS: ADMIT Internal Medicine Pulmonary Disease; ATTEND Internal Medicine Pulmonary Disease
DX: F19.129 Other psychoactive substance abuse with intoxication, unspecified (principal); F10.129 Alcohol abuse with intoxication, unspecified; F12.99 Cannabis use, unspecified with unspecified cannabis-induced disorder; F15.10 Other stimulant abuse, uncomplicated; F17.200 Nicotine dependence, unspecified, uncomplicated; Y90.6 Blood alcohol level of 120-199 mg/100 ml; S00.01XA Abrasion of scalp, initial encounter; X58.XXXA Exposure to other specified factors, initial encounter; Y93.89 Activity, other specified; Y92.89 Other specified places as the place of occurrence of the external cause; Y99.8 Other external cause status
CPT/HCPCS: 36415; 80053; 80305; 81001; 82948; 85025; 87081; 96372; 99285; C1758; G0480; G0482; J2060

== ENCOUNTER 2019-04-15 10:02 | Emergency (ER) | payer OTHER ==
[~2019-04-15] VITALS: Ht 172.7 cm; Wt 63.5 kg
[2019-04-15 10:11] VITALS: BP 158/90
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
--- NOTE | 2019-04-15 10:37 | NUR ---
XRAY AT BEDSIDE
--- NOTE | 2019-04-15 10:39 | NUR ---
EMT AT BEDSIDE FOR EKG
--- NOTE | 2019-04-15 10:55 | NUR ---
DR. WATSON SPEAKING WITH PT AT BEDSIDE.
[2019-04-15] MEDS ORDERED: IBUPROFEN 800 MG TAB PO ONE (11:00)
--- NOTE | 2019-04-15 11:07 | NUR ---
XRAY AT BEDSIDE
--- NOTE | 2019-04-15 11:52 | NUR ---
DR. WATSON SPEAKING W/ PT AT BEDSIDE.
[2019-04-15 11:57] VITALS: BP 117/82
== END 2019-04-15 11:56 | disposition home or self-care (01) ==
LOC: MED 10:02
DX: S20.20XA Contusion of thorax, unspecified, initial encounter (principal); S60.221A Contusion of right hand, initial encounter; F17.200 Nicotine dependence, unspecified, uncomplicated; F12.90 Cannabis use, unspecified, uncomplicated; Z71.6 Tobacco abuse counseling; V29.88XA Motorcycle rider (driver) (passenger) injured in other specified transport accidents, initial encounter; Y93.89 Activity, other specified; Y92.89 Other specified places as the place of occurrence of the external cause; Y99.8 Other external cause status
CPT/HCPCS: 71045; 73130; 93005; 99283; Q0092

== ENCOUNTER 2019-09-07 13:12 | Inpatient (IN) | payer OTHER ==
[~2019-09-07] VITALS: Ht 172.7 cm; Wt 63.5 kg
--- NOTE | 2019-09-07 13:13 | NUR ---
PT BIBA TO BED 06
[2019-09-07 13:20] VITALS: BP 105/52
--- NOTE | 2019-09-07 13:27 | NUR ---
54 YO MALE BIBA FOR LOWER ABD PAIN AND HEMATURIA STARTING TODAY. PT STATES THAT PAIN IS 9/10 IN LOWER LEFT AND RIGHT QUAD. BS ACTIVE IN ALL FOUT QUADS. SLIGHT PAIN ON PALPATION. PT HAS NO PMH AND NO RX. NKA.
--- NOTE | 2019-09-07 13:52 | NUR ---
ERMD BEDSIDE EVALUATING PT
[2019-09-07] MEDS ORDERED: MORPHINE SULFATE 4 MG/ML SYR IVP ONE (13:55)
[2019-09-07] MEDS ORDERED: ONDANSETRON 4 MG/2 ML VIAL IVP ONE (13:55)
[2019-09-07] MEDS ORDERED: cefTRIAXone 1,000 MG VIAL ONE (14:03)
[2019-09-07 14:17] LABS: BASOPHILS % (AUTO) 0.4 % (0.0-2.0); EOSINOPHILS # (AUTO) 0.1 K/uL (0-0.4); EOSINOPHILS % (AUTO) 1.2 % (0.0-4.0); HEMATOCRIT 42.4 % (36-52); HEMOGLOBIN 14.3 g/dL (12.0-18.0); LYMPHOCYTES % (AUTO) 10.9 % (20.5-51.1); MEAN CORPUSCULAR HEMOGLOBIN 33 pg (27-31); MEAN CORPUSCULAR HGB CONC 34 g/dL (33-37); MONOCYTES # (AUTO) 0.4 K/uL (0.8-1.0); MONOCYTES % (AUTO) 4.3 % (1.7-9.3); NEUTROPHILS # (AUTO) 7.7 K/uL (1.8-7.7); NEUTROPHILS % (AUTO) 83.2 % (42.2-75.2); PLATELET COUNT (AUTO) 271 K/uL (140-450); RED BLOOD CELL COUNT(AUTO) 4.29 MIL/uL (4.20-6.10); RED CELL DISTRIBUTION WIDTH 14.5 % (11.6-13.7); WHITE BLOOD COUNT (AUTO) 9.2 K/uL (4.8-10.8)
--- NOTE | 2019-09-07 14:33 | NUR ---
PT TAKEN TO CT VIA TASHA
[2019-09-07 14:36] LABS: ALBUMIN 3.3 g/dL (3.4-5.0); ANION GAP 8.5 (8-16); CARBON DIOXIDE 32.5 mmol/L (21-32); TOTAL BILIRUBIN 0.3 mg/dL (0.0-1.0)
--- NOTE | 2019-09-07 14:42 | NUR ---
PT RETURNED FROM CT
[2019-09-07 15:05] LABS: BILIRUBIN,URINE 1+ (NEGATIVE); BLOOD, URINE 3+ (NEGATIVE); COLOR,URINE RED (YELLOW); LEUKOCYTE ESTERASE ,URINE TRACE (NEGATIVE); NITRITE, URINE POSITIVE (NEGATIVE); PH,URINE 6.5 (5.0-9.0); UGLUCOSE TRACE (NEGATIVE)
[2019-09-07 15:07] LABS: APPEARANCE,URINE BLOODY (CLEAR)
[2019-09-07 15:12] LABS: RBC,URINE TOO NUMEROUS TO COUN /HPF (0-5)
[2019-09-07] MEDS ORDERED: NACL 0.9% 1,000 ML IV ONE ×2 (17:05→17:20)
[2019-09-07] MEDS ORDERED: ACETAMINOPHEN 325 MG TAB PO PRN ×2 (17:05→17:20)
[2019-09-07] MEDS ORDERED: HYDROcodone/APAP 5/325 MG 1 TAB TAB PO PRN (17:05)
[2019-09-07 17:45] VITALS: BP 104/76
--- NOTE | 2019-09-07 17:45 | NUR ---
RECEIVED PATIENT FROM ED NURSE BEBE VIA WHEELCHAIR. PATIENT AMBULATED TO THE BED WITHOUT DIFFICULTY. AAOX4. BELARUSIAN SPEAKING. RESPIRATIONS EVEN AND UNLABORED, ROOM AIR. VISIBLE RISE AND FALL NOTED. MED-SURGE. ABDOMEN SOFT AND NONTENDER. DENIES ABD PAIN AT THIS TIME. HX OF HERNIA REPAIR X2, TONSILLECTOMY AT 9 YEARS OLD. LAST BM TODAY PRIOR TO ED ARRIVAL. SKIN WARM, DRY, AND INTACT. IV IN THE LEFT AC G20, SALINE LOCK. CONTINENT. DX OF KIDNEY STONES AND UTI. AMBULATORY. UNIVERSAL FALL PRECAUTION. BED IN LOW POSITION. CALL LIGHT IS WITHIN REACH. WILL CONTINUE TO MONITOR.
--- NOTE | 2019-09-07 17:48 | NUR ---
Patient will be admitted to care of DR NORMAN. Admited to MS. Will go to room 111B. Belongings list completed. Report to FARHEEN PERKINS.
--- NOTE | 2019-09-07 17:50 | NUR ---
VS CHECKED: BP IS 104/76, HR 88, O2SAT 99% RA, TEMP: 97.8, RESP 19, UNLABORED. DENIES PAIN. MRSA NARES SWAB COLLECTED.
--- NOTE | 2019-09-07 18:00 | NUR ---
HANG NS AT A RATE OF 100 ML/HR. PATIENT IS EATING DINNER AT THIS TIME.
--- NOTE | 2019-09-07 19:12 | NUR ---
ENDORSED PATIENT TO CLINICAL SPECIALIST FOR CONTINUITY OF CARE.
--- NOTE | 2019-09-07 19:13 | NUR ---
RECD. RESTING IN BED, AWAKE, A/OX4. RESPIRATION EVEN AND UNLABORED. IV OF NS AT 100 ML/HR INFUSING LEFT AC G20. ABLE TO AMBULATE INDEPENDENTLY. STATED NO PAIN WHEN HE VOID BUT WITH BLOOD. PLAN OF CARE FOR THE SHIFT DISCUSSED. VERBALIZED UNDERSTANDING. DENIES PAIN 0/10.
--- NOTE | 2019-09-07 20:30 | NUR ---
RESTING IN BED, WATCHING TV.
[2019-09-07] MEDS ORDERED: TEMAZEPAM 15 MG CAP PO PRN (21:25)
--- NOTE | 2019-09-07 21:58 | NUR ---
UNABLE TO SLEEP, MEDICATED WITH RESTORIL PER MD ORDER.
--- NOTE | 2019-09-07 22:55 | NUR ---
SLEEPING COMFORTABLY IN BED.
--- NOTE | 2019-09-08 | NUR ---
COMFORTABLE IN BED, NO COMPLAINT OF PAIN 0/10.
--- NOTE | 2019-09-08 | NUR ---
MADE ROUNDS. PT IS AWAKE..WATCHING TV. NO C/O ANY DISCOMFORT NOR PAIN NOTED.
[2019-09-08 01:56] VITALS: BP 111/72
--- NOTE | 2019-09-08 03:30 | NUR ---
AMBULATED TO TO VOID, BACK TO BED AFTER VOIDING AND SLEEP AGAIN.
--- NOTE | 2019-09-08 05:25 | NUR ---
STILL SLEEPING COMFORTABLY IN BED.
--- NOTE | 2019-09-08 06:20 | NUR ---
ABLE TO SLEEP WELL. NO HEMATURIA NOTED DURING SHIFT. CONDITION REMAIN STABLE. WILL ENDORSE TO AM SHIFT NURSE FOR CONTINUITY OF CARE.
--- NOTE | 2019-09-08 07:30 | NUR ---
RECEIVED BEDSIDE REPORT FROM MAIL DISTRIBUTION SCHEME EXAMINER NURSE MARIA EUGENIA FOR CONTINUITY OF CARE. PT IS AWAKE AND WALKING TO THE BATHROOM AT THIS TIME. PT IS AAOX4, SPEAKS ITALIAN AND ABLE TO MAKE NEEDS KNOWN. RESPIRATION EVEN AND UNLABORED ON RA. NO SIGNS OF DISTRESS NOTED. IV ON LAC 20, CLEAN AND INTACT, INFUSING PER MD ORDER. SKIN CLEAN AND DRY. PT IS ABLE TO AMBULATE AND CONTINENT. DISCUSSED PLAN OF CARE WITH PT AND PT VERBALIZED UNDERSTANDING. TELE MONITOR ATTACHED. SAFETY MEASURES IN PLACE. BED IN LOW POSITION AND CALL LIGHT WITHIN REACH. BED LOCKED. INSTRUCTED PT TO USE THE CALL LIGHT FOR ANY ASSISTANCE AND PT AWARE.
--- NOTE | 2019-09-08 07:30 | NUR ---
CONDITION REMAIN STABLE. WILL ENDORSE TO AM SHIFT NURSE FOR CONTINUITY OF CARE.
[2019-09-08 07:36] LABS: BASOPHILS % (AUTO) 0.7 % (0.0-2.0); EOSINOPHILS # (AUTO) 0.1 K/uL (0-0.4); EOSINOPHILS % (AUTO) 2.1 % (0.0-4.0); HEMATOCRIT 38.7 % (36-52); HEMOGLOBIN 13.1 g/dL (12.0-18.0); LYMPHOCYTES # (AUTO) 1.5 K/uL (2.0-11.5); LYMPHOCYTES % (AUTO) 28.2 % (20.5-51.1); MEAN CORPUSCULAR HEMOGLOBIN 34 pg (27-31); MEAN CORPUSCULAR HGB CONC 34 g/dL (33-37); MEAN CORPUSCULAR VOLUME 99.3 fL (80-94); MONOCYTES # (AUTO) 0.4 K/uL (0.8-1.0); NEUTROPHILS # (AUTO) 3.3 K/uL (1.8-7.7); PLATELET COUNT (AUTO) 243 K/uL (140-450); RED CELL DISTRIBUTION WIDTH 14.5 % (11.6-13.7); WHITE BLOOD COUNT (AUTO) 5.2 K/uL (4.8-10.8)
[2019-09-08 07:39] LABS: ANION GAP 9.1 (8-16); CARBON DIOXIDE 28.3 mmol/L (21-32); CREATININE 0.8 mg/dL (0.6-1.3); POTASSIUM 3.4 mmol/L (3.5-5.1)
[2019-09-08 08:00] VITALS: BP 109/77
--- NOTE | 2019-09-08 09:03 | NUR ---
PATIENT HAS BEEN SCREENED AND CATEGORIZED LOW NUTRITION RISK. PATIENT WILL BE SEEN WITHIN 7 DAYS OF ADMISSION. 09/14/[address]
--- NOTE | 2019-09-08 09:55 | NUR ---
ATTENDED TO CALL LIGHT AND PT COMPLAINED HE HAS 6/10 PAIN, WILL MEDICATED.
--- NOTE | 2019-09-08 10:06 | NUR ---
INFORMED DR NORMAN THAT PT'S K IS 3.4 FROM AM LAB. RECEIVED VERBAL ORDER FOR 40 MEQ K-DUR ONCE PO, REPEATED AND CONFIRMED ORDER WITH . WILL INPUT ORDER.
[2019-09-08] MEDS ORDERED: TEMAZEPAM 15 MG CAP PO PRN (10:11)
--- NOTE | 2019-09-08 10:12 | NUR ---
DC PLANNIN YRS OLD MALE PATIENT WAS ADMITTED FROM HOME WITH A DX OF UTI, KIDNEY STONES . PATIENT HAS A HX OF KIDNEY STONES, HERNIA REPAIR. CT ABD/PELVIS SHOWED OBSTRUCTING 6MM CALCULUS IN THE RIGHT PROXIMAL URETER WITH MODERATED HYDRONEPHROSIS URINE AND BLOOD CULTURE PENDING. ADMINISTERED IVF MORPHINE IVP FOR PAIN AND IV ABX ROCEPHIN . CONSULTED WITH UROLOGIST DR EMERSON RODARTE. DC PLAN PER GROUP FITNESS MANAGER .CM TO FOLLOW Addendum: 09/09/19 at 1026 by Tania Callejas CM DC PLANNING: SEEN BY DR EMERSON RODARTE UROLOGIST , PERFORMED CYSTOSCOPY , RIGHT RETROGRADE PYELOGRAM, RIGHT URETERAL STENT PLACEMENT. PATIENT IS STABLE FOR DISCHARGE AND FOLLOW UP WITH UROLOGY DR NORMAN IN 2 WEEKS FOR CYSTOSCOPY AND LITHOTRIPSY AND CONTINUE PO ABX FOR 7 DAYS. CM TO FOLLOW. Addendum: 09/09/19 at 1101 by Tawana Garcia CM CONTACTED LAMAR AT [facility] TO FIND THE PATIENT AN UROLOGIST THAT IS COVERED UNDER THE [employer] [facility]. SHE GAVE ME A FACILITY NAMED [facility] LOCATED IN [place]. PATIENT MUST GET AUTHORIZATION FIRST FROM PCP [facility] [phone]. WILL INFORM PATIENT Addendum: 09/09/19 at 1119 by Tawana Garcia CM SPOKE TO PATIENT ABOUT FOLLOWING UP WITH HIS PCP [facility] TO GET AUTH FOR AN UROLOGIST. PATIENT REFUSED TO GO TO HIS PCP STATED THAT HE WILL NEVER GO BACK TO SEE HIM AND SAID THAT HE WILL JUST COME BACK TO [facility]. SPOKE TO PATIENTS FARHEEN CEDILLO AND INFORMED HER OF WHAT PATIENT STATED.
[2019-09-08] MEDS: HYDROcodone/APAP 5/325 MG 1 TAB TAB PO PRN (10:17)
[2019-09-08] MEDS: NACL 0.9% 1,000 ML IV SCH ×2 (10:17→20:00)
--- NOTE | 2019-09-08 10:19 | NUR ---
MEDICATED WITH PRN NORCO FOR 6/10 ABDOMINAL PAIN. REPLENISHED 40 MEQ K-DUR FOR LOW POTASSIUM 3.4 FROM AM LAB, MED EDUCATION PROVIDED TO PT AND PT VERBALIZED UNDERSTANDING. PT TOLERATED PO MEDS WELL. IVF NS INFUSING 100 ML/HR PER MD ORDER. PT AWAKE AND RESTING ON BED. NO SIGNS OF DISTRESS NOTED. TELE MONITOR ATTACHED. SAFETY MEASURES IN PLACE.
--- NOTE | 2019-09-08 10:31 | NUR ---
INDUSTRIAL MANAGEMENT TEACHER NOTE: Basic Screen: Yes High Risk DC Screen [place]: SHAUN Lucas Relationship: FRIEND Pre-Admission Living Arrangements: Lives with Other Prior ADL Independent Current Home Health Name/Tel: N/A Current DME/02 Name/Tel: N/A Current Hospice Name/Tel: N/A Current Dialysis Name/Tel: N/A Healthcare Decision Maker: Patient Advance Directive No Physician Orders for Life Sustaining Treatment Form No Discipline: Case Mgt/Social Svcs Tentative Discharge Plan/Destination: No Needs Identified Will require assistance post discharge: No Referred to Golf Sales Manager: No Tentative Discharge Plan Summary: PATIENT IS A 54-YEAR-OLD MALE ADMITTED FOR UTI. PATIENT HAS PMHX OF KIDNEYSTONES. PATIENT WAS ADMITTED FROM HOME WHERE HE LIVES WITH A FRIEND. SW MET WITH PATIENT AT BEDSIDE TO VERIFY DEMOGRAPHICS. PATIENT REQUESTED TO CHANGE ADDRESS TO [address] [place] [id number]. PER PATIENT, HE IS INDEPENDENT WITH ALL ADLS AND HAS NO MENTAL HEALTH HISTORY OF SUBSTANCE ABUSE HISTORY. PATIENT'S TENTATIVE DISCHARGE PLAN IS TO RETURN HOME. NO FURTHER NEEDS IDENTIFIED. Signature: MEGAN CALLOWAY Date: September 08, 2019 Time: 10:30
[2019-09-08] MEDS ORDERED: POTASSIUM CHLORIDE 10 MEQ TABER PO SCH (11:00)
--- NOTE | 2019-09-08 11:18 | NUR ---
HOURLY ROUNDING, PT IS AWAKE AND WATCHING TV ON BED. STATED PAIN IS TOLERABLE LIKE 2/10. NO ACUTE DISTRESS NOTED. TELE MONITOR ATTACHED. SAFETY MEASURES IN PLACE.
--- NOTE | 2019-09-08 11:21 | NUR ---
DR CAYDEN NORMAN IS TALKING AND ASSESSING PATIENT AT BEDSIDE. NO SIGNS OF DISTRESS NOTED. TELE MONITOR ATTACHED.
--- NOTE | 2019-09-08 11:33 | NUR ---
CONSENT FOR CYSTOSCOPY OBTAINED AT BEDSIDE. PER DR CAYDEN NORMAN, NPO AFTER MIDNIGHT.
--- NOTE | 2019-09-08 13:28 | NUR ---
PT IS RESTING ON BED COMFORTABLY. ALL NEEDS MET. NO SIGNS OF ACUTE DISTRESS NOTED. SAFETY MEASURES IN PLACE.
--- NOTE | 2019-09-08 14:38 | NUR ---
ADMINISTERED ANTIBIOTIC ROCEPHIN VIA IVPB PER MD ORDER, MED EDUCATION PROVIDED AND PT SAID OK. PT IS RESTING ON BED AT THIS TIME. NO SIGNS OF DISTRESS NOTED. SAFETY MEASURES IN PLACE.
--- NOTE | 2019-09-08 15:50 | NUR ---
PT IS RESTING ON BED COMFORTABLY. NO SIGNS OF DISTRESS NOTED. SAFETY MEASURES IN PLACE.
[2019-09-08 16:00] VITALS: BP 119/70
--- NOTE | 2019-09-08 17:47 | NUR ---
PT IS EATING DINNER AT THIS TIME. DENIED PAIN, SOB AND DIZZINESS. NO SIGNS OF DISTRESS NOTED. SAFETY MEASURES IN PLACE.
--- NOTE | 2019-09-08 19:26 | NUR ---
ENDORSED PT TO FINANCIAL ECONOMIST NURSE FOR CONTINUITY OF CARE. PT IS IN STABLE CONDITION. SAFETY MEASURES IN PLACE.
--- NOTE | 2019-09-08 19:30 | NUR ---
RECEIVED PT IN STABLE CONDITION FROM AM NURSE. AWAKE,ALERT AND ORIENTED X4. MED SURG PT. WITH NO C/O ANY PAIN AT THIS TIME. IVF INFUSING WELL ON THE LT AC G#20. FREQ ROUNDS NEEDED. BED ON LOW POSITION, CALL LIGHT AND URINAL WITHIN EASY REACH. INSTRUCTED TO CALL FO ANY ASSISTANCE NEEDED. WILL CONTINUE TO MONITOR.
[2019-09-08 20:00] VITALS: BP 106/65
--- NOTE | 2019-09-08 21:00 | NUR ---
MADE ROUNDS. PT IS AWAKE..WATCHING TV. NO C/O ANY DISCOMFORT NOR PAIN NOTED.
--- NOTE | 2019-09-08 21:09 | NUR ---
MAGNESIUM LEVEL 1.7. PAGED DR. EMERSON FARLEY STAKING ENGINEER. CALLED BACK AND MADE HIM AWARE. NO ORDER MADE.
--- NOTE | 2019-09-08 23:00 | NUR ---
PT IS ASLEEP. NO S/S OF ANY DISCOMFORT.. WILL CONTINUE TO MONITOR.
[2019-09-09] VITALS: BP 99/70
[2019-09-09] MEDS: NACL 0.9% 1,000 ML IV SCH (00:07)
--- NOTE | 2019-09-09 01:30 | NUR ---
MADE ROUNDS . PT IS ASLEEP.NO S/S FO ANY DISCOMFORT NOR PAIN NOTED.
--- NOTE | 2019-09-09 04:00 | NUR ---
AM LABS DRAWN . WILL F/U RESULTS. NO C/O ANY PAIN NOTED.
[2019-09-09 04:18] LABS: ANION GAP 8.5 (8-16); CARBON DIOXIDE 28.6 mmol/L (21-32); POTASSIUM 4.1 mmol/L (3.5-5.1)
[2019-09-09 04:23] LABS: PROTHROMBIN TIME 9.5 secs (10.8-13.4)
[2019-09-09 04:41] LABS: BASOPHILS # (AUTO) 0.1 K/uL (0.00-0.22); BASOPHILS % (AUTO) 1.2 % (0.0-2.0); EOSINOPHILS # (AUTO) 0.1 K/uL (0-0.4); EOSINOPHILS % (AUTO) 2.9 % (0.0-4.0); HEMATOCRIT 40.9 % (36-52); HEMOGLOBIN 13.5 g/dL (12.0-18.0); LYMPHOCYTES # (AUTO) 1.5 K/uL (2.0-11.5); LYMPHOCYTES % (AUTO) 31.1 % (20.5-51.1); MEAN CORPUSCULAR HEMOGLOBIN 33 pg (27-31); MEAN CORPUSCULAR HGB CONC 33 g/dL (33-37); MEAN CORPUSCULAR VOLUME 99.7 fL (80-94); MONOCYTES # (AUTO) 0.4 K/uL (0.8-1.0); NEUTROPHILS # (AUTO) 2.8 K/uL (1.8-7.7); NEUTROPHILS % (AUTO) 56.8 % (42.2-75.2); PLATELET COUNT (AUTO) 244 K/uL (140-450); RED BLOOD CELL COUNT(AUTO) 4.11 MIL/uL (4.20-6.10); RED CELL DISTRIBUTION WIDTH 14.6 % (11.6-13.7); WHITE BLOOD COUNT (AUTO) 4.9 K/uL (4.8-10.8)
--- NOTE | 2019-09-09 05:46 | NUR ---
PT REFUSED TO HAVE CLOTHES REMOVE AND HAVE HOSPITAL GOWN ON TO BE READY FOR THE PROCEDURE. HE SAID NOT TO TOUCH ANY FROM THE BED AND TABLE. WILL CALL DR.DAVID NORMAN FOR PT WANTS TO TALK TO HIM FOR SOME CONCERNS BEFORE THE SCHEDULED SURGERY.
--- NOTE | 2019-09-09 06:18 | NUR ---
PAGED DR.DAVID NORMAN . LEFT MESSAGE REGARDING PT NEED TO TALK TO HIM BEFORE THE PROCEDURE . WAITING FOR CALL BACK.
--- NOTE | 2019-09-09 06:42 | NUR ---
QIANA, OR NURSES CAME AND MATERIAL MAN PT BY BED FOR SURGERY.
[2019-09-09] MEDS ORDERED: PROPOFOL 200 MG/20 ML VIAL IV ONE (07:00)
[2019-09-09] MEDS ORDERED: GLYCOPYRROLATE 0.2 MG/ML VIAL ONE (07:00)
[2019-09-09] MEDS ORDERED: NEOSTIGMINE 1:1000 10 MG/10 ML VIAL ONE (07:00)
[2019-09-09] MEDS ORDERED: SEVOFLURANE 250 ML BTL INH ONE (07:00)
[2019-09-09] MEDS ORDERED: SUCCINYLCHOLINE CHLORIDE 200 MG/10 ML VIAL IVP ONE (07:00)
--- NOTE | 2019-09-09 07:15 | NUR ---
ENDORSED PT TO AM NURSE, PT ALREADY IN OR FOR CYSTOSCOPY RIGHT URETERAL STENT .
--- NOTE | 2019-09-09 07:17 | NUR ---
RECEIVED REPORT FROM PRINTED CIRCUIT BOARDS PINNER RN FOR CONTINUITY OF CARE. PT IS OFF UNIT TO OR AT THIS TIME.
[2019-09-09] MEDS ORDERED: LACTATED RINGERS 1,000 ML IV SCH (07:55)
[2019-09-09] MEDS ORDERED: HYDROmorphone 1 MG/ML AMP IVP PRN (07:55)
[2019-09-09 08:00] VITALS: BP 113/63
--- NOTE | 2019-09-09 08:19 | NUR ---
PT CAME BACK TO UNIT AND DR NORMAN IS BY BEDSIDE TALKING TO PT.
--- NOTE | 2019-09-09 08:22 | NUR ---
PT IS RESTING ON BED AT THIS TIME. RESPIRATION EVEN AND UNLABORED ON RA. DENIED PAIN, SOB AND DIZZINESS AT THIS TIME. IV ON LAC 20G, CLEAN AND INTACT, SL AT THIS TIME. PT IS ABLE TO AMBULATE AND CONTINENT. WILL CONTINUE TO MONITOR POST-OP VITAL SIGNS. NO SIGNS OF DISTRESS NOTED. SAFETY MEASURES IN PLACE. BED IN LOW POSITION AND CALL LIGHT WITHIN REACH.
--- NOTE | 2019-09-09 08:30 | NUR ---
ATTENDED TO CALL LIGHT, PT COMPLAINED THAT SOMEONE HAS TOUCH HIS PANT AND HE HAS MONEY IN HIS WALLET, EXPLAINED TO PT THAT NO ONE HAS ENTER HIS ROOM AND DOOR WAS CLOSED WHILE HE IS OFF UNIT TO OR. ASKED IF PT WANTS TO COUNT HIS MONEY WITH PRESENT OF SECURITY, PT REFUSED AND SAID "IF SECURITY IS HERE, I WILL TELL THEM TO GET THE F OUT." ASKED IF PATIENT LIKES TO COUNT HIS MONEY OR CHECK HIS BELONGINGS AT THIS TIME, PT SAID, " I WILL CHECK ON MY OWN." PATIENT REFUSED TO DISCLOSE HOW MUCH HE HAS IN HIS WALLET. NOTIFIED OPEN PIT QUARRY SUPERVISOR OF INCIDENT.
--- NOTE | 2019-09-09 08:40 | NUR ---
DR NORMAN GAVE VERBAL ORDER TO CHANGE DIET TO REGULAR. PAGED FNS FOR A BREAKFAST TRAY.
--- NOTE | 2019-09-09 08:57 | NUR ---
PROVIDED BREAKFAST TRAY. PT IS EATING BREAKFAST NOW. NO SIGNS OF DISTRESS NOTED. TELE MONITOR ATTACHED.
--- NOTE | 2019-09-09 09:11 | NUR ---
PT IS EATING BREAKFAST AT THIS TIME. NO SIGNS OF DISTRESS NOTED. SAFETY MEASURES IN PLACE.
[2019-09-09] MEDS ORDERED: CEFU500T73 PO (09:51)
[2019-09-09] MEDS: HYDROcodone/APAP 5/325 MG 1 TAB TAB PO PRN (10:11)
--- NOTE | 2019-09-09 10:12 | NUR ---
ATTENDED TO CALL LIGHT, PT COMPLAINED 5/10 PAIN. MEDICATED WITH PRN NORCO, MED EDUCATION PROVIDED AND PT TOLERATED PO MED WELL. PT ASKED FOR ANTIBIOTIC, EXPLAINED IAP DISPLAYS ANALYST HAS ADMINISTERED PRIOR TO PROCEDURE. PT ASKED TO REMOVE IV, EXPLAINED IV IS IMPORTANT FOR EMERGENCY DURING THE STAY IN HOSPITAL, CONTINUE INFUSING IVF PER MD ORDER. INFORMED PT THAT MD HAS DC HOME TODAY, PT REFUSED AND SAID "I AM NOT GOING AND I DON'T FEEL WELL. I WILL FILE A COMPLAINT." EXPLAINED THAT MD HAS CLEARED PT TO GO HOME, BUT PT INSISTED HE DOES NOT WANT TO BE DC. NOTIFIED SOCK IRONER. PT IS RESTING ON BED AT THIS TIME. NO SIGNS OF ACUTE DISTRESS NOTED.
--- NOTE | 2019-09-09 11:25 | NUR ---
ATTENDED TO CALL LIGHT AND PT SAID, " I NEED TO LEAVE NOW." ASKED PT TO WAIT 10 MINS TO PREPARE DC DOCUMENT, AND PT REPLIED, "IF YOU GET IT DONE BY THE TIME I PUT ON MY SHIRT, THEN YES." WILL PREPARE DC PAPERWORK.
--- NOTE | 2019-09-09 11:31 | NUR ---
DISCHARGE INSTRUCTION PROVIDED TO PT AT BEDSIDE, EDUCATED PT ON MEDICATION REGIMEN, SIDE EFFECTS, FOLLOW UP WITH MD IN 2 WEEKS, AND PT WAS AWARE THAT DUE TO INSURANCE ISSUE HE HAS TO COME TO ED, DR NORMAN AND DUAL HOSE CEMENTER HAS ALSO EXPLAINED TO PATIENT. REMOVED IV AND CANNULA INTACT, NO BLEEDING ON IV SITE. REMOVED ALL ARM BANDS.PT WAS AWARE THAT PRESCRIPTION SEND TO HIS PREFERRED PHARMACY [facility]. PROVIDED DISCHARGE PACKET HARD COPY. PT TOOK ALL HIS BELONGINGS AND SAID "I HAVE TO GO NOW! MY FRIEND IS COMING TO PICK ME UP WITH HIS TRUCK NOW. NO TIME!" WALKED PT TO THE FRONT LOBBY, AND PT IS GOING TO DC AT THIS TIME IN STABLE CONDITION.
== END 2019-09-09 11:32 | disposition home or self-care (01) | DRG 463 ==
LOC: MED 13:12 → MTU 17:12
PROVIDERS: ADMIT Internal Medicine; ATTEND Internal Medicine
PROC: BT1D1ZZ Fluoroscopy of Right Kidney, Ureter and Bladder using Low Osmolar Contrast (ICD-10-PCS; 2019-09-09)
PROC: 0T768DZ Dilation of Right Ureter with Intraluminal Device, Via Natural or Artificial Opening Endoscopic (ICD-10-PCS; principal; 2019-09-09 07:00)
DX: N13.6 Pyonephrosis (principal); E87.6 Hypokalemia
CPT/HCPCS: 36415; 71045; 80048; 80053; 81001; 83735; 85025; 85610; 85730; 87081; 87086; 93005; 96365; 96375; 99285; C1758; C1769; C1874; J0330; J0696; J2270; J2405; J2704; J2710; J3490; J7030; J7060; Q0092

== ENCOUNTER 2019-09-20 16:53 | Inpatient (IN) | payer OTHER, SELFPAY ==
[~2019-09-20] VITALS: Ht 172.7 cm; Wt 63.5 kg
[~2019-09-20 16:53] MED LIST: CEFU500T73 PO
[2019-09-20 16:58] VITALS: BP 106/57
[2019-09-20] MEDS ORDERED: MORPHINE SULFATE 4 MG/ML SYR IVP ONE (17:25)
[2019-09-20 17:32] LABS: BASOPHILS % (AUTO) 0.7 % (0.0-2.0); EOSINOPHILS # (AUTO) 0.2 K/uL (0-0.4); EOSINOPHILS % (AUTO) 3.5 % (0.0-4.0); HEMATOCRIT 39.1 % (36-52); HEMOGLOBIN 13.2 g/dL (12.0-18.0); LYMPHOCYTES # (AUTO) 1.2 K/uL (2.0-11.5); MEAN CORPUSCULAR HEMOGLOBIN 34 pg (27-31); MEAN CORPUSCULAR HGB CONC 34 g/dL (33-37); MEAN CORPUSCULAR VOLUME 99.3 fL (80-94); MONOCYTES # (AUTO) 0.5 K/uL (0.8-1.0); MONOCYTES % (AUTO) 11.6 % (1.7-9.3); NEUTROPHILS # (AUTO) 2.4 K/uL (1.8-7.7); NEUTROPHILS % (AUTO) 56.2 % (42.2-75.2); PLATELET COUNT (AUTO) 331 K/uL (140-450); RED BLOOD CELL COUNT(AUTO) 3.94 MIL/uL (4.20-6.10); RED CELL DISTRIBUTION WIDTH 14.3 % (11.6-13.7); WHITE BLOOD COUNT (AUTO) 4.3 K/uL (4.8-10.8)
[2019-09-20 17:47] LABS: PROTHROMBIN TIME 9.6 secs (10.8-13.4)
[2019-09-20 17:51] LABS: ALBUMIN 3.1 g/dL (3.4-5.0); ANION GAP 12.6 (8-16); CARBON DIOXIDE 26.9 mmol/L (21-32); CREATININE 1.2 mg/dL (0.6-1.3); POTASSIUM 3.5 mmol/L (3.5-5.1); TOTAL BILIRUBIN 0.2 mg/dL (0.0-1.0)
[2019-09-20] MEDS ORDERED: MORPHINE SULFATE 4 MG/ML SYR IVP PRN (18:00)
[2019-09-20] MEDS ORDERED: ACETAMINOPHEN 325 MG TAB PO PRN (18:00)
[2019-09-20] MEDS ORDERED: ONDANSETRON 4 MG/2 ML VIAL IVP PRN (18:00)
[2019-09-20] MEDS ORDERED: NACL 0.9% 1,000 ML IV ONE (18:00)
[2019-09-20] MEDS: DEXT 5% /NACL 0.9% 1,000 ML IV SCH (23:33)
[2019-09-21] VITALS: BP 127/65
[2019-09-21 05:30] LABS: APPEARANCE,URINE SL CLOUDY (CLEAR); BILIRUBIN,URINE NEGATIVE (NEGATIVE); BLOOD, URINE 3+ (NEGATIVE); COLOR,URINE YELLOW (YELLOW); LEUKOCYTE ESTERASE ,URINE 1+ (NEGATIVE); NITRITE, URINE NEGATIVE (NEGATIVE); PH,URINE 6.5 (5.0-9.0); UGLUCOSE NEGATIVE (NEGATIVE)
[2019-09-21 05:54] LABS: CALCIUM OXALATE CRYSTALS,UR 0-10 /HPF (None Seen)
[2019-09-21 05:58] LABS: BASOPHILS # (AUTO) 0.1 K/uL (0.00-0.22); BASOPHILS % (AUTO) 1.2 % (0.0-2.0); EOSINOPHILS # (AUTO) 0.3 K/uL (0-0.4); EOSINOPHILS % (AUTO) 6.3 % (0.0-4.0); HEMATOCRIT 39.8 % (36-52); HEMOGLOBIN 13.2 g/dL (12.0-18.0); LYMPHOCYTES # (AUTO) 1.6 K/uL (2.0-11.5); LYMPHOCYTES % (AUTO) 36.7 % (20.5-51.1); MEAN CORPUSCULAR HEMOGLOBIN 34 pg (27-31); MEAN CORPUSCULAR HGB CONC 33 g/dL (33-37); MEAN CORPUSCULAR VOLUME 100.7 fL (80-94); MONOCYTES # (AUTO) 0.5 K/uL (0.8-1.0); MONOCYTES % (AUTO) 11.3 % (1.7-9.3); NEUTROPHILS # (AUTO) 1.9 K/uL (1.8-7.7); NEUTROPHILS % (AUTO) 44.5 % (42.2-75.2); PLATELET COUNT (AUTO) 290 K/uL (140-450); RED BLOOD CELL COUNT(AUTO) 3.95 MIL/uL (4.20-6.10); RED CELL DISTRIBUTION WIDTH 14.8 % (11.6-13.7); WHITE BLOOD COUNT (AUTO) 4.4 K/uL (4.8-10.8)
[2019-09-21 06:14] LABS: ANION GAP 9.5 (8-16); CARBON DIOXIDE 30.9 mmol/L (21-32); POTASSIUM 4.4 mmol/L (3.5-5.1)
[2019-09-21 06:21] LABS: MAGNESIUM 1.8 mg/dL (1.8-2.4); PHOSPHORUS 3.1 mg/dL (2.5-4.9)
[2019-09-21] MEDS ORDERED: DESFLURANE 240 ML BTL INH ONE (07:20)
[2019-09-21] MEDS ORDERED: fentaNYL 0.05 MG/ML VIAL ONE (07:20)
[2019-09-21] MEDS ORDERED: PROPOFOL 200 MG/20 ML VIAL IV ONE (07:20)
[2019-09-21] MEDS ORDERED: HYDROmorphone PFS 2 MG/ML SYR ONE (09:06)
[2019-09-21] MEDS ORDERED: HYDROmorphone 1 MG/ML AMP IVP PRN (09:10)
[2019-09-21 09:20] VITALS: BP 127/79
[2019-09-21] MEDS: DEXT 5% /NACL 0.9% 1,000 ML IV SCH (13:21)
[2019-09-21] MEDS: HYDROcodone/APAP 5/325 MG 1 TAB TAB PO PRN (14:14)
[2019-09-21 16:00] VITALS: BP 112/71
[2019-09-22] VITALS: BP 119/71
[2019-09-22] MEDS: DEXT 5% /NACL 0.9% 1,000 ML IV SCH (04:55)
[2019-09-22] MEDS: HYDROcodone/APAP 5/325 MG 1 TAB TAB PO PRN (04:55)
[2019-09-22 07:33] LABS: BASOPHILS % (AUTO) 0.6 % (0.0-2.0); CARBON DIOXIDE 33.4 mmol/L (21-32); CREATININE 0.9 mg/dL (0.6-1.3); EOSINOPHILS # (AUTO) 0.2 K/uL (0-0.4); EOSINOPHILS % (AUTO) 3.3 % (0.0-4.0); HEMATOCRIT 40.4 % (36-52); HEMOGLOBIN 13.5 g/dL (12.0-18.0); LYMPHOCYTES # (AUTO) 1.4 K/uL (2.0-11.5); LYMPHOCYTES % (AUTO) 21.7 % (20.5-51.1); MEAN CORPUSCULAR HEMOGLOBIN 34 pg (27-31); MEAN CORPUSCULAR HGB CONC 34 g/dL (33-37); MEAN CORPUSCULAR VOLUME 100.6 fL (80-94); MONOCYTES # (AUTO) 0.6 K/uL (0.8-1.0); MONOCYTES % (AUTO) 8.7 % (1.7-9.3); NEUTROPHILS # (AUTO) 4.3 K/uL (1.8-7.7); NEUTROPHILS % (AUTO) 65.7 % (42.2-75.2); PLATELET COUNT (AUTO) 300 K/uL (140-450); POTASSIUM 4.4 mmol/L (3.5-5.1); RED BLOOD CELL COUNT(AUTO) 4.01 MIL/uL (4.20-6.10); WHITE BLOOD COUNT (AUTO) 6.6 K/uL (4.8-10.8)
[2019-09-22 07:39] LABS: MAGNESIUM 1.8 mg/dL (1.8-2.4); PHOSPHORUS 2.5 mg/dL (2.5-4.9)
[2019-09-22 08:00] VITALS: BP 108/80
== END 2019-09-22 16:30 | disposition left against medical advice (07) | DRG 446 ==
LOC: MED 16:53 → MTU 17:58 → EEVIPCON 17:58
PROVIDERS: ADMIT Hospitalist; ATTEND Hospitalist
PROC: 0T768DZ Dilation of Right Ureter with Intraluminal Device, Via Natural or Artificial Opening Endoscopic (ICD-10-PCS; 2019-09-21)
PROC: BT1D1ZZ Fluoroscopy of Right Kidney, Ureter and Bladder using Low Osmolar Contrast (ICD-10-PCS; 2019-09-21)
PROC: 0TP98DZ Removal of Intraluminal Device from Ureter, Via Natural or Artificial Opening Endoscopic (ICD-10-PCS; 2019-09-21)
PROC: 0TC38ZZ Extirpation of Matter from Right Kidney Pelvis, Via Natural or Artificial Opening Endoscopic (ICD-10-PCS; principal; 2019-09-21 07:00)
DX: T83.193A Other mechanical complication of other urinary stent, initial encounter (principal); N13.6 Pyonephrosis; F12.10 Cannabis abuse, uncomplicated; J45.909 Unspecified asthma, uncomplicated; Z91.19 Patient's noncompliance with other medical treatment and regimen; Y83.8 Other surgical procedures as the cause of abnormal reaction of the patient, or of later complication, without mention of misadventure at the time of the procedure; Y92.89 Other specified places as the place of occurrence of the external cause; R31.9 Hematuria, unspecified; Z53.29 Procedure and treatment not carried out because of patient's decision for other reasons; Z20.828 Contact with and (suspected) exposure to other viral communicable diseases
CPT/HCPCS: 36415; 71045; 80048; 80053; 81001; 83735; 84100; 85025; 85610; 87081; 87086; 88300; 93005; 96361; 96374; 99285; C1769; C1874; J1170; J2270; J2704; J3010; J7042; Q0092

== ENCOUNTER 2019-09-25 07:05 | Emergency (ER) | payer OTHER, SELFPAY ==
[~2019-09-25] VITALS: Ht 172.7 cm; Wt 63.5 kg
[2019-09-25 07:15] VITALS: BP 107/70
--- NOTE | 2019-09-25 07:20 | NUR ---
PT AMBULATED TO ER BED 11
[2019-09-25] MEDS ORDERED: MIDAZOLAM 2 MG/2 ML VIAL IVP ONE (07:35)
--- NOTE | 2019-09-25 07:38 | NUR ---
PATIENT LEFT AGAINST MEDICAL ADVICE AFTER ADMISSION 09/20/19 AND PLACEMENT OF RIGHT URETHRAL STENT. DENIES PAIN, CHILLS, FEVER, OR N/V/D. STATES HE WAS INSTRUCTED TO RETURN TO ER TO HAVE STENT REMOVED. VS STABLE. PT ALERT AND AWAKE. STATES HE WALKED TO ER. MED HX: KIDNEY STONE, SEIZURE, MARIJUANA USE
--- NOTE | 2019-09-25 07:39 | NUR ---
PT STATES LITTLE DISCOMFORT TO PENILE REGION DUE TO THE STRING IN THE URETHRA
--- NOTE | 2019-09-25 07:42 | NUR ---
VERSED IVP ADMINISTERED
--- NOTE | 2019-09-25 07:48 | NUR ---
DR NORMAN AT BEDSIDE, STENT REMOVED
--- NOTE | 2019-09-25 07:54 | NUR ---
NADR. PAIN 0/10
[2019-09-25 07:55] VITALS: BP 110/67
--- NOTE | 2019-09-25 07:55 | NUR ---
Patient discharged with v/s stable. Written and verbal after care instructions given and explained REGARDIGN AFTER CARE OF STENT REMOVAL. Patient verbalized understanding. Ambulatory with steady gait. All questions addressed prior to discharge. Advised to follow up with PMD. PT INSTRUCTED TO NOT DRIVE DUE TO VERSED PT STATES HE IS WALKING HOME
== END 2019-09-25 07:55 | disposition home or self-care (01) ==
LOC: MED 07:05
DX: T19.1XXA Foreign body in bladder, initial encounter (principal); F17.210 Nicotine dependence, cigarettes, uncomplicated; N20.0 Calculus of kidney; Z79.899 Other long term (current) drug therapy; Z90.09 Acquired absence of other part of head and neck
CPT/HCPCS: 96374; 99283; J2250

== ENCOUNTER 2019-11-28 02:21 | Emergency (ER) | payer OTHER ==
[~2019-11-28] VITALS: Ht 172.7 cm; Wt 63.0 kg
[2019-11-28 02:27] VITALS: BP 130/78
[2019-11-28 03:23] VITALS: BP 124/70
== END 2019-11-28 03:23 | disposition home or self-care (01) ==
LOC: MED 02:21
DX: R21 Rash and other nonspecific skin eruption (principal); Z87.710 Personal history of (corrected) hypospadias; Z79.899 Other long term (current) drug therapy
CPT/HCPCS: 99283

== ENCOUNTER 2019-12-29 09:05 | Emergency (ER) | payer OTHER ==
[~2019-12-29] VITALS: Ht 172.7 cm; Wt 63.5 kg
[2019-12-29 09:07] VITALS: BP 109/76
--- NOTE | 2019-12-29 09:10 | NUR ---
PATIENT AMBULATED TO BED 11.
--- NOTE | 2019-12-29 09:42 | NUR ---
C/O LEFT FLANK PAIN X 1 WEEK, C/O HEMATURIA X 3 DAYS THAT HAS SINCE CLEARED. DENIES DYSURIA. AND C/O RIGHT AND LEFT AXILLA ABSCESS X 2 WEEKS. STATES HE HAD AN I&D AND WENT HOME WITH ANTIBIOTICS. THE ABSCESSES RETURNED AFTER TREATMENT. PAINFUL TO TOUCH. VS STABLE. PAIN 11/04. PT AMBULATORY, ALERT AND AWAKE MED HX: HERNIA REPAIR, KIDNEY STENT APPROX 1 MONTH AGO
[2019-12-29] MEDS ORDERED: KETOROLAC 30 MG/ML VIAL IVP ONE (09:45)
[2019-12-29] MEDS ORDERED: NACL 0.9% 500 ML IV ONE (09:45)
[2019-12-29] MEDS ORDERED: LIDOCAINE 2% 1000 MG/50 ML VIAL INJ ONE (09:45)
--- NOTE | 2019-12-29 10:10 | NUR ---
DR LEE AT BEDSIDE FOR I&D
--- NOTE | 2019-12-29 10:24 | NUR ---
PT TO CT VIA TASHA
--- NOTE | 2019-12-29 10:46 | NUR ---
NADR, PAIN 08/05
[2019-12-29 11:18] VITALS: BP 121/70
--- NOTE | 2019-12-29 11:18 | NUR ---
Patient discharged with v/s stable. Written and verbal after care instructions given and explained. Patient alert, oriented and verbalized understanding of instructions. Ambulatory with steady gait. All questions addressed prior to discharge. ID band removed. Patient advised to follow up with PMD. Rx of BACTRIM, KEFLEX, AND MOTRIN given. Patient educated on indication of medication including possible reaction and side effects. Opportunity to ask questions provided and answered. PT INSTRUCTED TO KEEP SITE DRY AND CLEAN, CHANGE DRESSIGN DAILY OR PRN IF SOILED INSTRUCTED TO RETURN IN 48 HOURS FOR REMOVAL OF PACKING. PT ISNTRUCTED NEGATIVE XRAY, TO FOLLOW UP WITH PCP IF HEMATURIA RETURNS
== END 2019-12-29 11:18 | disposition home or self-care (01) ==
LOC: MED 09:05 → CANBEDREQ 10:31 → MED 11:18
DX: I88.9 Nonspecific lymphadenitis, unspecified (principal); Z87.442 Personal history of urinary calculi; Z79.899 Other long term (current) drug therapy; Z98.890 Other specified postprocedural states
CPT/HCPCS: 10061; 74176; 81002; 96374; 99284; J1885; J2001; J7030

== ENCOUNTER 2019-12-31 08:35 | Emergency (ER) | payer OTHER ==
[~2019-12-31] VITALS: Ht 172.7 cm; Wt 63.5 kg
[2019-12-31 08:43] VITALS: BP 103/55
--- NOTE | 2019-12-31 08:47 | NUR ---
AMB TO BED 11
--- NOTE | 2019-12-31 08:51 | NUR ---
DR. ROBLES EVALUATING PT AT BEDSIDE
--- NOTE | 2019-12-31 09:02 | NUR ---
54 Y/O M C/C BILATERAL AXILLARY ABSCESS. PT PRESENTS WITH MILD DISCOMFORT. REDNESS NOTED ON AREA. PT NKA. PER PT HX AND RX GIVEN TO DOCTOR. PT PRESENTS EUPNIC,VSS,AMBULATORY,A/OX4. DENIES NVD. SIDE RAIL X1.
[2019-12-31 09:05] VITALS: BP 103/55
== END 2019-12-31 09:06 | disposition home or self-care (01) ==
LOC: MED 08:35
DX: L02.412 Cutaneous abscess of left axilla (principal); F17.210 Nicotine dependence, cigarettes, uncomplicated; F12.90 Cannabis use, unspecified, uncomplicated; Z48.00 Encounter for change or removal of nonsurgical wound dressing; Z90.09 Acquired absence of other part of head and neck; Z98.890 Other specified postprocedural states; Z79.899 Other long term (current) drug therapy
CPT/HCPCS: 99283

== ENCOUNTER 2020-01-02 15:18 | Emergency (ER) | payer OTHER ==
[~2020-01-02] VITALS: Ht 167.6 cm; Wt 62.6 kg
[2020-01-02 15:30] VITALS: BP 119/76
--- NOTE | 2020-01-02 15:34 | NUR ---
PT BIB [facility] TO ER BED 2
--- NOTE | 2020-01-02 15:35 | NUR ---
PT BIBA FOR HEAT EXHAUSTION AND MUSCLE CRAMPS S/P WALKING UNDER THE SUN WITH HIGH TEMP 120 FOR 2 BLOCKS. PT REPORT FEELING SLIGHT DIZZY BUT NO NAUSEA OR VOMITING. PT PRESENTS WITH DIAPHORESIS BUT VITAL SIGNS ARE STABLE. DENIES ANY COVID-19 RELATED SX. AAOX4; HR EVEN AND REGULAR; PT DENIES ANY FEVER, CP, SOB, OR COUGH AT THIS TIME; PATIENT STATES PAIN OF 0/10 AT THIS TIME; VSS; PATIENT POSITIONED FOR COMFORT; HOB ELEVATED; BEDRAILS UP X2; BED DOWN. ER MD MADE AWARE OF PT STATUS.
[2020-01-02] MEDS ORDERED: ONDANSETRON 4 MG/2 ML VIAL IVP ONE (15:45)
[2020-01-02] MEDS ORDERED: KETOROLAC 30 MG/ML VIAL IVP ONE (15:45)
[2020-01-02] MEDS ORDERED: NACL 0.9% 1,500 ML IV ONE (15:45)
--- NOTE | 2020-01-02 15:55 | NUR ---
PT STATES HE HAS CRAMPING PAIN 5/10 ON THE SPAMS MUSCLE AREA AND SLIGHT NAUSEA AT THIS TIME.
--- NOTE | 2020-01-02 16:19 | NUR ---
PT STATES HE IS NOT ABLE TO URINATE AT THIS TIME.
[2020-01-02 17:01] LABS: BASOPHILS % (AUTO) 0.3 % (0.0-2.0); EOSINOPHILS # (AUTO) 0.1 K/uL (0-0.4); EOSINOPHILS % (AUTO) 2.7 % (0.0-4.0); HEMATOCRIT 45.1 % (36-52); HEMOGLOBIN 14.8 g/dL (12.0-18.0); MEAN CORPUSCULAR HEMOGLOBIN 33 pg (27-31); MEAN CORPUSCULAR HGB CONC 33 g/dL (33-37); MEAN CORPUSCULAR VOLUME 101.1 fL (80-94); MONOCYTES # (AUTO) 0.5 K/uL (0.8-1.0); MONOCYTES % (AUTO) 9.6 % (1.7-9.3); NEUTROPHILS # (AUTO) 3.8 K/uL (1.8-7.7); NEUTROPHILS % (AUTO) 68.4 % (42.2-75.2); PLATELET COUNT (AUTO) 301 K/uL (140-450); RED BLOOD CELL COUNT(AUTO) 4.46 MIL/uL (4.20-6.10); RED CELL DISTRIBUTION WIDTH 14.8 % (11.6-13.7); WHITE BLOOD COUNT (AUTO) 5.5 K/uL (4.8-10.8)
--- NOTE | 2020-01-02 17:10 | NUR ---
PT IS RESTING IN THE BED WITH VITALS ARE STABLE SHOWS ON THE MONITOR.
[2020-01-02 17:13] LABS: ALBUMIN 3.8 g/dL (3.4-5.0); ANION GAP 17.2 (8-16); CARBON DIOXIDE 21.3 mmol/L (21-32); CREATININE 1.7 mg/dL (0.6-1.3); POTASSIUM 3.5 mmol/L (3.5-5.1); TOTAL BILIRUBIN 0.2 mg/dL (0.0-1.0)
[2020-01-02 17:23] LABS: BARBITURATE, URINE NEGATIVE ng/ml (NEG <=200); BENZODIAZEPINE, URINE NEGATIVE ng/mL (NEG <=200); CANNABINOID, URINE POSITIVE ng/mL (NEG <=50); COCAINE, URINE NEGATIVE ng/mL (NEG <=300); OPIATE, URINE NEGATIVE ng/mL (NEG <=2000); PHENCYCLIDINE SCREEN,URINE NEGATIVE ng/mL (NEG <=25)
[2020-01-02 17:26] LABS: APPEARANCE,URINE SL CLOUDY (CLEAR); BILIRUBIN,URINE 2+ (NEGATIVE); BLOOD, URINE 2+ (NEGATIVE); COLOR,URINE YELLOW (YELLOW); LEUKOCYTE ESTERASE ,URINE NEGATIVE (NEGATIVE); NITRITE, URINE NEGATIVE (NEGATIVE); UGLUCOSE TRACE (NEGATIVE)
[2020-01-02 17:49] LABS: URIC ACID CRYSTALS,URINE 30-50 /HPF (None Seen); WBC,URINE 0-5 /HPF (0-5)
[2020-01-02] MEDS ORDERED: PANTOPRAZOLE 40 MG TABEC PO ONE (18:05)
[2020-01-02 18:15] VITALS: BP 112/74
== END 2020-01-02 18:15 | disposition home or self-care (01) ==
LOC: MED 15:18
DX: E87.1 Hypo-osmolality and hyponatremia (principal); E86.0 Dehydration; R25.2 Cramp and spasm; F12.10 Cannabis abuse, uncomplicated; Z98.890 Other specified postprocedural states; Z79.899 Other long term (current) drug therapy
CPT/HCPCS: 36415; 80053; 80305; 81001; 85025; 96361; 96374; 96375; 99284; J1885; J2405; J7030

== ENCOUNTER 2020-01-03 10:13 | Emergency (ER) | payer OTHER ==
[~2020-01-03] VITALS: Ht 167.6 cm; Wt 62.8 kg
[2020-01-03] MEDS ORDERED: DICYCLOMINE HCL LIQUID 20 MG, ALUMINUM HYD/MAG/SIMETHICONE 30 ML, LIDOCAINE VISCOUS 2% ... PO ONE ×3 (10:15)
[2020-01-03 10:19] VITALS: BP 110/74
--- NOTE | 2020-01-03 10:23 | NUR ---
54 YO MALE BIBA CO ABD PAIN AND CRAMPING SINCE TODAY. PT WAS SEEN HERE IN ER YESTERDAY FOR DEHYDRATION. PT STATES THAT HE DOES NOT FEEL ANY BETTER TODAY. DENIES ANY N/V/D.
[2020-01-03] MEDS ORDERED: ALUMINUM HYD/MAG/SIMETHICONE 30 ML UDC ONE (10:25)
[2020-01-03] MEDS ORDERED: DICYCLOMINE HCL LIQUID 10 MG/5 ML UDC ONE (10:25)
[2020-01-03] MEDS ORDERED: LIDOCAINE VISCOUS 2% 20 ML UDC ONE (10:25)
[2020-01-03 11:21] LABS: BASOPHILS % (AUTO) 0.4 % (0.0-2.0); EOSINOPHILS # (AUTO) 0.1 K/uL (0-0.4); EOSINOPHILS % (AUTO) 1.6 % (0.0-4.0); HEMATOCRIT 41.1 % (36-52); HEMOGLOBIN 13.6 g/dL (12.0-18.0); LYMPHOCYTES # (AUTO) 1.2 K/uL (2.0-11.5); MEAN CORPUSCULAR HEMOGLOBIN 33 pg (27-31); MEAN CORPUSCULAR HGB CONC 33 g/dL (33-37); MEAN CORPUSCULAR VOLUME 100.3 fL (80-94); MONOCYTES # (AUTO) 0.5 K/uL (0.8-1.0); MONOCYTES % (AUTO) 8.1 % (1.7-9.3); NEUTROPHILS # (AUTO) 4.4 K/uL (1.8-7.7); NEUTROPHILS % (AUTO) 70.9 % (42.2-75.2); PLATELET COUNT (AUTO) 265 K/uL (140-450); RED CELL DISTRIBUTION WIDTH 14.5 % (11.6-13.7); WHITE BLOOD COUNT (AUTO) 6.3 K/uL (4.8-10.8)
[2020-01-03 11:37] LABS: ALBUMIN 3.2 g/dL (3.4-5.0); ANION GAP 12.1 (8-16); CARBON DIOXIDE 24.4 mmol/L (21-32); CREATININE 0.9 mg/dL (0.6-1.3); POTASSIUM 4.5 mmol/L (3.5-5.1); TOTAL BILIRUBIN 0.4 mg/dL (0.0-1.0)
[2020-01-03 11:45] LABS: CREATINE KINASE MB 6.4 ng/mL (0-3.6)
[2020-01-03 12:20] VITALS: BP 119/78
--- NOTE | 2020-01-03 12:20 | NUR ---
Patient discharged with v/s stable. Written and verbal after care instructions given and explained. Patient alert, oriented and verbalized understanding of instructions. Ambulatory with steady gait. All questions addressed prior to discharge. ID band removed. Patient advised to follow up with PMD. Rx of MYLANTA given. Patient educated on indication of medication including possible reaction and side effects. Opportunity to ask questions provided and answered.
== END 2020-01-03 12:20 | disposition home or self-care (01) ==
LOC: MED 10:13
DX: R10.10 Upper abdominal pain, unspecified (principal); M79.10 Myalgia, unspecified site; F12.90 Cannabis use, unspecified, uncomplicated; Z98.890 Other specified postprocedural states; Z79.899 Other long term (current) drug therapy
CPT/HCPCS: 36415; 71045; 80053; 82550; 82553; 83690; 84484; 85025; 93005; 99285; Q0092

== ENCOUNTER 2020-09-05 20:41 | Emergency (ER) | payer OTHER ==
[~2020-09-05] VITALS: Ht 172.7 cm; Wt 63.5 kg
[2020-09-05 20:55] VITALS: BP 106/53
--- NOTE | 2020-09-05 20:55 | NUR ---
TO BED AMBULATORY
--- NOTE | 2020-09-05 21:00 | NUR ---
PATIENT 55 Y/O MALE BIB SELF FOR C/O 02/04 BLE PAIN X 10 MONTHS AND R AC PAIN 02/04 X 2 DAYS S/P IV DRUG USE. PATIENT STATES, "I WENT TO MY PRIMARY CARE DOCTOR TO FIGURE OUT WHAT IS WRONG WITH MY LEGS, AND HE DID AN ULTRASOUND. IT CAME BACK NEGATIVE AND THEN JUST SENT ME HOME WITH NAPROXEN. HE IS A QUACK THATS WHY I WANT YOU TO FIND OUT WHAT IS WRONG WITH ME." PATIENT ABLE TO MOVE BLE WITHOUT DIFFICULTY. PEDAL PULSES STRONG, EQUAL. SKIN IS WARM TO TOUCH. PATIENT NO REDNESS OR EDEMA NOTED IN BLE. SKIN INTACT. PATIENT NOTED WITH REDNESS, AND SWELLING IN R AC. PATIENT RADIAL PULSES STRONG, AND EQUAL BILAT. R AC HOT TO TOUCH, NO PUS OR DRAINAGE NOTED. PATIENT AFEBRILE. PATIENT BED IS LOCKED AND IN LOWEST POSITION. MEDHX: KIDNEY STONES, HTN, ANXIETY, DEPRESSION, HX OF INGUINAL HERNIA
--- NOTE | 2020-09-05 21:10 | NUR ---
CHELLY SANTOS AT BEDSIDE FOR MEDICAL EVALUATION.
--- NOTE | 2020-09-05 21:39 | NUR ---
LAB AT BEDSIDE.
[2020-09-05] MEDS: SULFAMETH/TRIMETH DS 800/160MG 1 TAB PO ONE (21:40)
[2020-09-05] MEDS: cephALEXin 500 MG CAP PO ONE (21:40)
[2020-09-05] MEDS: KETOROLAC 30 MG/ML VIAL IM ONE (21:40)
[2020-09-05 21:48] LABS: BASOPHILS # (AUTO) 0.3 K/uL (0.00-0.22); EOSINOPHILS # (AUTO) 0.1 K/uL (0-0.4); EOSINOPHILS % (AUTO) 2.3 % (0.0-4.0); HEMATOCRIT 40.2 % (36-52); HEMOGLOBIN 13.6 g/dL (12.0-18.0); LYMPHOCYTES # (AUTO) 1.1 K/uL (2.0-11.5); LYMPHOCYTES % (AUTO) 17.7 % (20.5-51.1); MEAN CORPUSCULAR HEMOGLOBIN 33 pg (27-31); MEAN CORPUSCULAR HGB CONC 34 g/dL (33-37); MEAN CORPUSCULAR VOLUME 96.9 fL (80-94); MONOCYTES # (AUTO) 0.8 K/uL (0.8-1.0); MONOCYTES % (AUTO) 12.1 % (1.7-9.3); NEUTROPHILS # (AUTO) 3.9 K/uL (1.8-7.7); NEUTROPHILS % (AUTO) 62.9 % (42.2-75.2); PLATELET COUNT (AUTO) 262 K/uL (140-450); RED BLOOD CELL COUNT(AUTO) 4.15 MIL/uL (4.20-6.10); RED CELL DISTRIBUTION WIDTH 13.8 % (11.6-13.7); WHITE BLOOD COUNT (AUTO) 6.2 K/uL (4.8-10.8)
--- NOTE | 2020-09-05 22:00 | NUR ---
Patient appears to be resting comfortably in bed. Vital Signs within normal limits. Respirations even and unlabored.
[2020-09-05 22:03] LABS: ANION GAP 15.3 (8-16); CARBON DIOXIDE 24.8 mmol/L (21-32); CREATININE 1.2 mg/dL (0.6-1.3); POTASSIUM 4.1 mmol/L (3.5-5.1)
[2020-09-05] MEDS ORDERED: SULF-59 PO (22:16)
[2020-09-05] MEDS ORDERED: CEPH500T PO (22:16)
[2020-09-05 22:35] VITALS: BP 117/62
--- NOTE | 2020-09-05 22:35 | NUR ---
PATIENT STATES,"I CAN'T BELIVE I'M FUCKEN DISCHARGED. I'M NOT FUCKEN LEAVING THIS BED UNTIL YOU GET ME A FUCKEN VOUCHER TO GET HOME. FUCK YOU GUYS.
--- NOTE | 2020-09-05 22:35 | NUR ---
Patient discharged with v/s stable. Written and verbal after care instructions given and explained. Patient alert, oriented and verbalized understanding of instructions. Ambulatory with steady gait. All questions addressed prior to discharge. ID band removed. Patient advised to follow up with PMD. Rx of CEPHALEXIN, BACTRIM given. Patient educated on indication of medication including possible reaction and side effects. Opportunity to ask questions provided and answered. Patient refused to sign d/c paperwork and left without d/c paperwork.
--- NOTE | 2020-09-05 22:45 | NUR ---
SPOKE WITH KRANTHI FROM [facility] AND STATES ETA WILL BE IN 30-45 MIN. TAXI VOUCHER #[id number]
--- NOTE | 2020-09-05 22:51 | NUR ---
PATIENT TO WAIT FOR TAXI IN LOBBY. PATIENT GIVEN DIALYSIS CHIEF EQUIPMENT TECHNICIAN'S NUMBER PER REQUEST.
== END 2020-09-05 22:35 | disposition home or self-care (01) ==
LOC: MED 20:41
DX: L03.113 Cellulitis of right upper limb (principal); M79.604 Pain in right leg; M79.605 Pain in left leg; G89.29 Other chronic pain; F15.90 Other stimulant use, unspecified, uncomplicated; F11.90 Opioid use, unspecified, uncomplicated
CPT/HCPCS: 36415; 80048; 82550; 85025; 96372; 99283; J1885

== ENCOUNTER 2020-09-09 11:06 | Emergency (ER) | payer OTHER ==
[~2020-09-09] VITALS: Ht 170.2 cm; Wt 63.5 kg
[~2020-09-09 11:06] MED LIST changes: +CEPH500T PO; +SULF-59 PO
[2020-09-09 11:09] VITALS: BP 117/70
--- NOTE | 2020-09-09 11:17 | NUR ---
Patient ambulated with steady gait to bed 1.
--- NOTE | 2020-09-09 11:22 | NUR ---
55 Y/O MALE C/O LOWER BACK PAIN 10/05 DESCRIBES SHARP X2DAYS. PT STATES HE HAS URINARY RETENTION, FEELS "FULLNESS" BUT WHEN HE DOES NEED TO GO HE HAS A SENSE OF URGENCY, STATES HE WENT TO RESTROOM X1HR BUT UNABLE TO GO NOW. PT DENIES TAKING RX AT HOME PRIOR TO ARRIVAL. PT STATES +N/-V, DENIES HEMATURIA, DENIES DISCHARGE/DYSURIA FEVER/CHILLS. PMH: KIDNEY STONES NKA
--- NOTE | 2020-09-09 11:56 | NUR ---
Pt ambulated to restroom for UA collection.
--- NOTE | 2020-09-09 11:58 | NUR ---
Pt ambulated to ER bed 1.
--- NOTE | 2020-09-09 11:59 | NUR ---
technology program manager at pt bedside.
[2020-09-09 12:09] LABS: BASOPHILS # (AUTO) 0.1 K/uL (0.00-0.22); BASOPHILS % (AUTO) 0.8 % (0.0-2.0); EOSINOPHILS # (AUTO) 0.2 K/uL (0-0.4); EOSINOPHILS % (AUTO) 2.4 % (0.0-4.0); HEMATOCRIT 42.7 % (36-52); HEMOGLOBIN 14.6 g/dL (12.0-18.0); LYMPHOCYTES # (AUTO) 1.7 K/uL (2.0-11.5); LYMPHOCYTES % (AUTO) 21.9 % (20.5-51.1); MEAN CORPUSCULAR HEMOGLOBIN 33 pg (27-31); MEAN CORPUSCULAR HGB CONC 34 g/dL (33-37); MEAN CORPUSCULAR VOLUME 96.9 fL (80-94); MONOCYTES # (AUTO) 0.6 K/uL (0.8-1.0); MONOCYTES % (AUTO) 8.1 % (1.7-9.3); NEUTROPHILS # (AUTO) 5.1 K/uL (1.8-7.7); NEUTROPHILS % (AUTO) 66.8 % (42.2-75.2); PLATELET COUNT (AUTO) 329 K/uL (140-450); RED BLOOD CELL COUNT(AUTO) 4.41 MIL/uL (4.20-6.10); RED CELL DISTRIBUTION WIDTH 13.7 % (11.6-13.7); WHITE BLOOD COUNT (AUTO) 7.6 K/uL (4.8-10.8)
[2020-09-09 12:13] LABS: APPEARANCE,URINE CLEAR (CLEAR); BILIRUBIN,URINE 1+ (NEGATIVE); BLOOD, URINE 1+ (NEGATIVE); COLOR,URINE YELLOW (YELLOW); LEUKOCYTE ESTERASE ,URINE NEGATIVE (NEGATIVE); NITRITE, URINE NEGATIVE (NEGATIVE); UGLUCOSE NEGATIVE (NEGATIVE)
[2020-09-09 12:47] LABS: WBC,URINE 0-5 /HPF (0-5)
[2020-09-09 13:02] LABS: ALBUMIN 3.5 g/dL (3.4-5.0); ANION GAP 11.3 (8-16); CARBON DIOXIDE 30.5 mmol/L (21-32); CREATININE 1.2 mg/dL (0.6-1.3); POTASSIUM 4.8 mmol/L (3.5-5.1); TOTAL BILIRUBIN 0.2 mg/dL (0.0-1.0)
[2020-09-09] MEDS ORDERED: KETOROLAC 15 MG/ML VIAL IVP SCH (13:15)
[2020-09-09] MEDS ORDERED: KETOROLAC 30 MG/ML VIAL IM SCH (13:20)
[2020-09-09] MEDS ORDERED: chlordiazePOXIDE 25 MG CAP PO STA (13:33)
[2020-09-09 13:50] VITALS: BP 117/70
[2020-09-09] MEDS ORDERED: chlordiazePOXIDE 25 MG CAP PO SCH (17:00)
== END 2020-09-09 13:51 | disposition home or self-care (01) ==
LOC: MED 11:26
DX: N20.0 Calculus of kidney (principal); I10 Essential (primary) hypertension
CPT/HCPCS: 36415; 80053; 81001; 85025; 86140; 87086; 96372; 99284; J1885

== ENCOUNTER 2021-01-20 11:57 | Emergency (ER) | payer OTHER ==
[~2021-01-20] VITALS: Ht 172.7 cm; Wt 68.9 kg
[2021-01-20 12:24] VITALS: BP 123/79
--- NOTE | 2021-01-20 12:28 | NUR ---
Pt sent to ER lobby to wait for MSE/available bed.
[2021-01-20] MEDS ORDERED: CEPH-588 PO (12:50)
[2021-01-20] MEDS ORDERED: NAPR-54 PO (12:50)
--- NOTE | 2021-01-20 12:58 | NUR ---
No nursing interventions performed.
--- NOTE | 2021-01-20 13:00 | NUR ---
Patient discharged with v/s stable. Written and verbal after care instructions given and explained. Patient alert, oriented and verbalized understanding of instructions. Ambulatory with steady gait. All questions addressed prior to discharge. ID band removed. Patient advised to follow up with PMD. Rx of Naproxen, Keflex given. Patient educated on indication of medication including possible reaction and side effects. Opportunity to ask questions provided and answered.
== END 2021-01-20 13:00 | disposition home or self-care (01) ==
LOC: MED 11:57
DX: L03.114 Cellulitis of left upper limb (principal); I10 Essential (primary) hypertension; Z79.899 Other long term (current) drug therapy
CPT/HCPCS: 99283

== ENCOUNTER 2021-02-27 18:13 | Emergency (ER) | payer OTHER ==
[~2021-02-27] VITALS: Ht 172.7 cm; Wt 68.7 kg
[~2021-02-27 18:13] MED LIST changes: +CEPH-588 PO; +NAPR-54 PO
[2021-02-27 18:26] VITALS: BP 116/67
--- NOTE | 2021-02-27 18:37 | NUR ---
55YO F C/O RIGHT ARM ABSCESS FROM INSECT BITE X 3 DAYS. PAIN 6/10, BURNING. DENIES FEVER. DENIES DISCHARGE. NO MEDS APPLIED OR TAKEN. IN ED, AOX4. WITH REDNESS AND INDURATION ~2CM ON RIGHT ARM, WITH DRIED SCAB NOTED. CLEAR BREATH SOUNDS. PT POSITIONED COMFORTABLY IN BED. ERMD MADE AWARE OF PT STATUS. PMH: KIDNEY STONES MEDS: NONE NKA
[2021-02-27] MEDS ORDERED: IBUP-2213 PO (18:59)
[2021-02-27] MEDS ORDERED: CEPH-588 PO (18:59)
[2021-02-27 19:08] VITALS: BP 116/67
--- NOTE | 2021-02-27 19:08 | NUR ---
Patient discharged with v/s stable. Written and verbal after care instructions given and explained. Patient alert, oriented and verbalized understanding of instructions. Ambulatory with steady gait. All questions addressed prior to discharge. ID band removed. Patient advised to follow up with PMD. Rx of CEPHALEXIN, IBUPROFEN given. Patient educated on indication of medication including possible reaction and side effects. Opportunity to ask questions provided and answered.
== END 2021-02-27 19:08 | disposition home or self-care (01) ==
LOC: MED 18:13
DX: L03.113 Cellulitis of right upper limb (principal); I10 Essential (primary) hypertension; F17.210 Nicotine dependence, cigarettes, uncomplicated; Z79.899 Other long term (current) drug therapy
CPT/HCPCS: 99283

== ENCOUNTER 2021-04-03 14:54 | Emergency (ER) | payer OTHER ==
[~2021-04-03] VITALS: Ht 172.7 cm; Wt 64.9 kg
[~2021-04-03 14:54] MED LIST changes: -CEFU500T73 PO; -CEPH500T PO; +IBUP-2213 PO; -NAPR-54 PO; -SULF-59 PO
[2021-04-03 15:29] VITALS: BP 126/80
--- NOTE | 2021-04-03 15:34 | NUR ---
Cory dukes in [facility] - 04/03/21 at 1536 by MED1 PT AMB TO BED 12
--- NOTE | 2021-04-03 15:36 | NUR ---
PT AMB TO BED 5
--- NOTE | 2021-04-03 15:45 | NUR ---
DR. MENG EVALUATING PATIENT AT BEDSIDE
[2021-04-03] MEDS ORDERED: CEPH-588 PO (15:59)
[2021-04-03] MEDS ORDERED: SULF-59 PO (15:59)
[2021-04-03] MEDS ORDERED: IBUP-2213 PO (15:59)
--- NOTE | 2021-04-03 16:24 | NUR ---
Patient discharged with v/s stable. Written and verbal after care instructions given and explained. Patient alert, oriented and verbalized understanding of instructions. Ambulatory with steady gait. All questions addressed prior to discharge. ID band removed. Patient advised to follow up with PMD. Rx of CEPHALEXIN, IBUPROFEN, SULFAMETHOZOLE given. Opportunity to ask questions provided and answered.
== END 2021-04-03 16:23 | disposition home or self-care (01) ==
LOC: MED 14:54
DX: L03.114 Cellulitis of left upper limb (principal); I10 Essential (primary) hypertension; Z79.1 Long term (current) use of non-steroidal anti-inflammatories (NSAID); Z79.2 Long term (current) use of antibiotics
CPT/HCPCS: 99283

== ENCOUNTER 2021-11-16 21:32 | Emergency (ER) | payer OTHER ==
[~2021-11-16] VITALS: Ht 172.7 cm; Wt 68.0 kg
[~2021-11-16 21:32] MED LIST changes: +SULF-59 PO
[2021-11-16 22:25] VITALS: BP 111/79
--- NOTE | 2021-11-16 22:34 | NUR ---
TO BED 4 FROM TRIAGE
--- NOTE | 2021-11-16 23:00 | NUR ---
56 YO M BIBS W C/O SPIDER BITE X 1 WEEK ON RIGHT FOREARM. ABSCESS NOTED WITH CLEAR YELLOW DRAINAGE. PMH: DENIES MEDS: DENIES
[2021-11-17] MEDS ORDERED: CEPH-588 PO (00:03)
[2021-11-17] MEDS ORDERED: IBUP-2213 PO (00:04)
[2021-11-17 00:18] VITALS: BP 111/79
--- NOTE | 2021-11-17 00:18 | NUR ---
Patient discharged with v/s stable. Written and verbal after care instructions given and explained. Patient alert, oriented and verbalized understanding of instructions. Ambulatory with steady gait. All questions addressed prior to discharge. ID band removed. Patient advised to follow up with PMD. Rx of KEFLEX & IBUPROFEN given. Patient educated on indication of medication including possible reaction and side effects. Opportunity to ask questions provided and answered.
== END 2021-11-17 00:18 | disposition home or self-care (01) ==
LOC: MED 21:32
DX: L02.413 Cutaneous abscess of right upper limb (principal); L03.113 Cellulitis of right upper limb; F17.200 Nicotine dependence, unspecified, uncomplicated; Z79.899 Other long term (current) drug therapy; Z90.49 Acquired absence of other specified parts of digestive tract; Z98.890 Other specified postprocedural states
CPT/HCPCS: 99283

== ENCOUNTER 2022-01-14 12:16 | Emergency (ER) | payer OTHER ==
[~2022-01-14] VITALS: Ht 170.2 cm; Wt 66.2 kg
[2022-01-14 12:20] VITALS: BP 148/84
[2022-01-14 15:40] LABS: BASOPHILS % (AUTO) 0.6 % (0.0-2.0); EOSINOPHILS # (AUTO) 0.1 K/uL (0-0.4); EOSINOPHILS % (AUTO) 1.8 % (0.0-4.0); HEMATOCRIT 43.5 % (36-52); HEMOGLOBIN 14.8 g/dL (12.0-18.0); LYMPHOCYTES # (AUTO) 1.6 K/uL (2.0-11.5); LYMPHOCYTES % (AUTO) 25.2 % (20.5-51.1); MEAN CORPUSCULAR HEMOGLOBIN 32 pg (27-31); MEAN CORPUSCULAR HGB CONC 34 g/dL (33-37); MEAN CORPUSCULAR VOLUME 94.6 fL (80-94); MONOCYTES # (AUTO) 0.5 K/uL (0.8-1.0); MONOCYTES % (AUTO) 7.3 % (1.7-9.3); NEUTROPHILS # (AUTO) 4.2 K/uL (1.8-7.7); NEUTROPHILS % (AUTO) 65.1 % (42.2-75.2); PLATELET COUNT (AUTO) 318 K/uL (140-450); RED CELL DISTRIBUTION WIDTH 14.6 % (11.6-13.7); WHITE BLOOD COUNT (AUTO) 6.4 K/uL (4.8-10.8)
[2022-01-14] MEDS: KETOROLAC 30 MG/ML VIAL IVP ONE (15:57)
[2022-01-14] MEDS: NACL 0.9% 1,000 ML IV ONE (15:58)
--- NOTE | 2022-01-14 16:00 | NUR ---
56 Y/O MALE BIB SELF C/O LOW BACK PAIN X3DAYS. DENIES ANY N/V/D/PAIN OR BURNING. pmh: kidney stones nka med: denies
[2022-01-14 16:09] LABS: ALBUMIN 3.7 g/dL (3.4-5.0); ANION GAP 14.7 (8-16); CARBON DIOXIDE 25.3 mmol/L (21-32); CREATININE 0.9 mg/dL (0.6-1.3); TOTAL BILIRUBIN 0.5 mg/dL (0.0-1.0)
--- NOTE | 2022-01-14 16:30 | NUR ---
PT ASKED IF ABLE TO GIVE URINE SAMPLE, PT STATED THAT HE ALREADY GAVE A SAMPLE
--- NOTE | 2022-01-14 16:35 | NUR ---
CALLED LAB, PER Koudai TECH, NO URINE IN LAB, DIRTY UTILITY, AND OTHER AREAS IN THE ER DO NOT HAVE PT'S URINE
--- NOTE | 2022-01-14 16:45 | NUR ---
PT ARGUMENTATIVE WITH NURSE STATING THAT "HE'S NOT GONNA GIVE ANOTHER ONE"
--- NOTE | 2022-01-14 16:50 | NUR ---
PT LEFT W/O DC PAPERS
--- NOTE | 2022-01-14 16:50 | NUR ---
PT IV REMOVED, PT WALKED OUT OF THE ED, ERMD MADE AWARE
[2022-01-14] MEDS: MORPHINE SULFATE 4 MG/ML SYR IVP ONE (16:59)
== END 2022-01-14 16:50 | disposition home or self-care (01) ==
LOC: MED 12:16
DX: R10.9 Unspecified abdominal pain (principal); R35.0 Frequency of micturition; F17.210 Nicotine dependence, cigarettes, uncomplicated; Z87.442 Personal history of urinary calculi; Z98.890 Other specified postprocedural states
CPT/HCPCS: 36415; 74176; 80053; 85025; 96361; 96374; 99284; J1885; J7030

== ENCOUNTER 2023-10-02 11:46 | Emergency (ER) | payer OTHER ==
[~2023-10-02] VITALS: Ht 172.7 cm; Wt 68.0 kg
[2023-10-02 12:15] VITALS: BP 115/84; PULSE 104; RESP 18; TEMP 97; O2SAT 96
[2023-10-02] MEDS ORDERED: CEPH-588 PO (12:53)
[2023-10-02 12:59] VITALS: BP 121/82; PULSE 88; RESP 16; TEMP 98; O2SAT 99
== END 2023-10-02 12:59 | disposition home or self-care (01) ==
LOC: MED 11:46
DX: S60.512A Abrasion of left hand, initial encounter (principal); L03.114 Cellulitis of left upper limb; Z79.899 Other long term (current) drug therapy; W01.198A Fall on same level from slipping, tripping and stumbling with subsequent striking against other object, initial encounter; Y93.89 Activity, other specified; Y92.89 Other specified places as the place of occurrence of the external cause; Y99.8 Other external cause status
CPT/HCPCS: 99283

== ENCOUNTER 2024-01-29 22:42 | Emergency (ER) | payer OTHER ==
[~2024-01-29] VITALS: Ht 172.7 cm; Wt 67.6 kg
[2024-01-29 22:53] VITALS: BP 129/91; PULSE 102; RESP 18; TEMP 97; O2SAT 98
[2024-01-30] MEDS ORDERED: BACI-105 TP (01:57)
[2024-01-30] MEDS ORDERED: DIPH25TA53 PO (01:57)
[2024-01-30 02:05] VITALS: BP 122/91; PULSE 92; RESP 18; TEMP 97.6; O2SAT 98
== END 2024-01-30 02:05 | disposition home or self-care (01) ==
LOC: MED 22:42
DX: L03.115 Cellulitis of right lower limb (principal); Z79.899 Other long term (current) drug therapy
CPT/HCPCS: 99282